=== PATIENT | female | born 1950 | race Caucasian/White ===

== ENCOUNTER 2018-04-07 10:32 | Emergency (ER) | payer OTHER ==
[~2018-04-07] VITALS: Ht 154.9 cm; Wt 83.9 kg
[~2018-04-07 10:32] MED LIST: ASCO500 PO; ASPI81CH PO; B-12 1,000 MCG1 EACH SL; CEPH500 PO; CIPR500 PO; COQ1050 MG PO; CRANBERRY CONC1 EACH PO; CYAN100 PO; CYAN500 SL; Cranberry300 MG PO; DICY20; DIPATR PO; FAMO40 PO; FENT50TP; HYDACE5 PO; HYDMOR4; INSLI100I; INSUASPI SUBQ; INSULANI SC; INVOKANA100 MG PO; INVOKANA300 MG PO; Kristalose20 GM PO; LISI20 PO; LISI5; LIVALO4 MG PO; METANX CAPSULE1 EACH PO; METF500; METO10; METO10 PO; Norco 5-325 Ta1 EACH PO; OMEP20ER; ONDA4 PO; ONDA4ODT MM; ONDA8; ONDA8 PO; ONDA8ODT; ONDA8ODT MM; OXYACE5T PO; PANT40; POTA20PAC PO; POTCHL20ER PO; PROC10 PO; PROC25S PR; PROM25; PROM25 PO; PROM25S; PROM25S PR; Pepcid40 MG PO; Percocet 5-3251 EACH PO; Protonix40 MG PO; Pseudoephedrine30 MG PO; RXHYDMOR2 PO; RXONDA4ODT MM; RXPROM25 PO; SOLIQUA 100 UNIT3 ML SC; TOCO400 PO; TRIM200S; VALS80; VITAMIN C; VITAMIN E; Zofran Odt4 MG SL; [UNRECOGNIZED DRUG - REMARK]; [UNRECOGNIZED DRUG - REMARK]; [UNRECOGNIZED DRUG - REMARK]
[2018-04-07] MEDS ORDERED: INSULANPEN SC (11:04)
[2018-04-07] MEDS ORDERED: GLIM2 PO (11:05)
[2018-04-07] MEDS ORDERED: ASPI81CH PO (11:05)
[2018-04-07 12:06] LABS: BASOPHILS ABSOLUTE AUTO 0.01 K/mm3 (0.00-0.23); BASOPHILS PERCENT AUTO 0 % (0-2); EOSINOPHILS PERCENT AUTO 0 % (0-6); Hemoglobin 16.2 g/dL (11.5-16.0); IMMATURE GRAN ABSOLUTE AUTO 0.04 K/mm3 (0.00-0.10); IMMATURE GRAN PERCENT AUTO 0 % (0-1); LYMPHOCYTES ABSOLUTE AUTO 0.81 K/mm3 (0.84-5.20); LYMPHOCYTES PERCENT AUTO 8 % (21-46); MONOCYTES ABSOLUTE AUTO 0.25 K/mm3 (0.16-1.47); MONOCYTES PERCENT AUTO 2 % (4-13); Mean Corpuscular HGB 32.7 pg (26.0-34.0); Mean Corpuscular HGB Conc 35.2 g/dL (31.5-36.5); Mean Corpuscular Volume 93 fL (80-100); Mean Platelet Volume 9.8 fL (9.1-12.4); NEUTROPHILS ABSOLUTE AUTO 9.51 K/mm3 (1.96-9.15); NEUTROPHILS PERCENT AUTO 90 % (41-73); Platelet Count 222 K/mm3 (150-400); RDW Coefficient Variation 11.9 % (11.7-14.2); RDW Standard Deviation 41.1 fL (35.1-46.3); Red Blood Cell Count 4.96 M/mm3 (3.80-5.20); White Blood Cell Count 10.62 K/mm3 (4.00-11.30)
[2018-04-07 12:20] LABS: Alanine Aminotransfer (ALT/SGP 79 U/L (12-78); Albumin, Blood 3.9 g/dL (3.4-5.0); Albumin/Globulin Ratio 0.9 (0.8-1.8); Alk Phos 97 U/L (50-136); Anion Gap 14 mmol/L (6-16); Aspartate Aminotrans (AST/SGOT 59 U/L (12-37); Blood Urea Nitrogen 15 mg/dL (8-24); Bun/Creatinine Ratio 22.1 (12.0-20.0); CO2, Blood 25 mmol/L (21-32); Calcium, Blood 9.2 mg/dL (8.5-10.1); Chloride, Blood 99 mmol/L (98-108); Creatinine, Blood 0.68 mg/dL (0.40-1.00); Globulin, Blood 4.4 g/dL (2.2-4.0); Glomerular Filtration Rate >60 (60-); Glucose, Blood 394 mg/dL (70-99); Potassium, Blood 3.9 mmol/L (3.5-5.5); Sodium, Blood 138 mmol/L (136-145); Total Protein, Blood 8.3 g/dL (6.4-8.2)
[2018-04-07] MEDS ORDERED: Colace100 MG PO (13:37)
[2018-04-07 13:54] LABS: Source, Urine Clean Catch
[2018-04-07 14:00] LABS: Bilirubin, Urine Neg (Neg); Blood, Urine Neg (Neg); Glucose Qualitative, Urine 4+ (Neg); Ketones, Urine 3+ (Neg); Leukocyte Esterase, Urine Neg (Neg); Nitrite, Urine Neg (Neg); Protein, Urine 1+ (Neg); Urobilinogen, Urine NORM (Normal); pH, Urine 6.5 (5.0-8.0)
[2018-04-07 14:57] LABS: Appearance, Urine Clear (Clear); Color, Urine Pale Yellow (P-Yellow)
== END 2018-04-07 15:26 | disposition home or self-care (01) ==
LOC: ER 10:32
PROVIDERS: Emergency Medicine
DX: K59.00 Constipation, unspecified (principal); E11.65 Type 2 diabetes mellitus with hyperglycemia; Z79.899 Other long term (current) drug therapy; Z79.82 Long term (current) use of aspirin; Z79.4 Long term (current) use of insulin
CPT/HCPCS: 36415; 74177; 80053; 83690; 85025; 93005; 93010; 96361; 96374; 99284; J3010; J7030; Q9967

== ENCOUNTER 2018-11-24 14:17 | Emergency (ER) | payer OTHER ==
[~2018-11-24] VITALS: Ht 154.9 cm; Wt 83.9 kg
[~2018-11-24 14:17] MED LIST changes: +Colace100 MG PO; +GLIM2 PO; +INSULANPEN SC
[2018-11-24 15:39] LABS: BASOPHILS ABSOLUTE AUTO 0.03 K/mm3 (0.00-0.23); BASOPHILS PERCENT AUTO 0 % (0-2); EOSINOPHILS ABSOLUTE AUTO 0.01 K/mm3 (0.00-0.68); EOSINOPHILS PERCENT AUTO 0 % (0-6); Hematocrit 48.1 % (33.0-51.0); IMMATURE GRAN ABSOLUTE AUTO 0.08 K/mm3 (0.00-0.10); IMMATURE GRAN PERCENT AUTO 1 % (0-1); LYMPHOCYTES ABSOLUTE AUTO 2.85 K/mm3 (0.84-5.20); LYMPHOCYTES PERCENT AUTO 19 % (21-46); MONOCYTES ABSOLUTE AUTO 0.99 K/mm3 (0.16-1.47); MONOCYTES PERCENT AUTO 7 % (4-13); Mean Corpuscular HGB 32.6 pg (26.0-34.0); Mean Corpuscular HGB Conc 35.3 g/dL (31.5-36.5); Mean Corpuscular Volume 92 fL (80-100); Mean Platelet Volume 9.2 fL (9.1-12.4); NEUTROPHILS ABSOLUTE AUTO 11.24 K/mm3 (1.96-9.15); NEUTROPHILS PERCENT AUTO 74 % (41-73); Platelet Count 238 K/mm3 (150-400); RDW Coefficient Variation 12.2 % (11.7-14.2); RDW Standard Deviation 41.4 fL (35.1-46.3); Red Blood Cell Count 5.21 M/mm3 (3.80-5.20)
[2018-11-24 16:07] LABS: Alanine Aminotransfer (ALT/SGP 46 U/L (12-78); Albumin, Blood 4.3 g/dL (3.4-5.0); Alk Phos 95 U/L (50-136); Anion Gap 9 mmol/L (6-16); Aspartate Aminotrans (AST/SGOT 28 U/L (12-37); Bilirubin, Total 1.2 mg/dL (0.1-1.0); Blood Urea Nitrogen 37 mg/dL (8-24); Bun/Creatinine Ratio 40.4 (12.0-20.0); CO2, Blood 29 mmol/L (21-32); Calcium, Blood 8.8 mg/dL (8.5-10.1); Chloride, Blood 99 mmol/L (98-108); Creatinine, Blood 0.92 mg/dL (0.40-1.00); Globulin, Blood 4.4 g/dL (2.2-4.0); Glomerular Filtration Rate >60 (60-); Glucose, Blood 242 mg/dL (70-99); Potassium, Blood 3.6 mmol/L (3.5-5.5); Sodium, Blood 137 mmol/L (136-145); Total Protein, Blood 8.7 g/dL (6.4-8.2)
[2018-11-24 16:32] LABS: Source, Urine Clean Catch
[2018-11-24 16:37] LABS: Blood, Urine 1+ (Neg); Glucose Qualitative, Urine 1+ (Neg); Ketones, Urine 2+ (Neg); Leukocyte Esterase, Urine 2+ (Neg); Nitrite, Urine Pos (Neg); Protein, Urine 4+ (Neg); Urobilinogen, Urine 2+ (Normal)
[2018-11-24 16:45] LABS: Appearance, Urine Hazy (Clear); Bilirubin, Urine 2+ (Neg); Color, Urine Yellow (P-Yellow)
[2018-11-24 16:46] LABS: Bacteria Many /hpf; Squamous Epithelial Cells Mod /hpf (Few)
[2018-11-24] MEDS ORDERED: Acetaminophen1 EAC2 PO (17:24)
[2018-11-24] MEDS ORDERED: Cipro500 MG PO (19:33)
[2018-11-24] MEDS ORDERED: Flagyl500 MG PO (19:33)
== END 2018-11-24 19:53 | disposition home or self-care (01) ==
LOC: ER 14:17
PROVIDERS: Physician Assistant
DX: K57.32 Diverticulitis of large intestine without perforation or abscess without bleeding (principal); N39.0 Urinary tract infection, site not specified; E86.0 Dehydration; E11.9 Type 2 diabetes mellitus without complications; Z79.899 Other long term (current) drug therapy; Z79.82 Long term (current) use of aspirin; Z79.4 Long term (current) use of insulin
CPT/HCPCS: 36415; 74177; 80053; 81001; 85025; 87086; 96365; 96375; 99284-25; C9113; J0696; J3010; J7030; Q9967

== ENCOUNTER 2019-02-16 12:07 | Day surgery (SDC) | payer OTHER ==
[~2019-02-16] VITALS: Ht 154.9 cm; Wt 85.0 kg
[~2019-02-16 12:07] MED LIST changes: +Acetaminophen1 EAC2 PO; +Cipro500 MG PO; +Flagyl500 MG PO; +LO-DOSE ASPIRIN81 MG; +LOSA25; +Novolog100 UNIT/2; +PROBIOTIC PLUS1 EACH; +TYLENOL PM EX-1 EAC1
--- NOTE | 2019-02-16 12:59 | NUR ---
02/16/19 1259 Tam Moyer 1ST IV ATTEMPT VEIN BLEW-CMT 2-3 ATTEMPT VEIN BLEW
== END 2019-02-16 14:19 | disposition home or self-care (01) ==
LOC: ORSCSDS 12:07
PROVIDERS: Surgery
PROC: 0DBN8ZX Excision of Sigmoid Colon, Via Natural or Artificial Opening Endoscopic, Diagnostic (ICD-10-PCS; principal; 2019-02-16 13:30)
DX: Z12.11 Encounter for screening for malignant neoplasm of colon (principal); D12.5 Benign neoplasm of sigmoid colon; I10 Essential (primary) hypertension; E78.5 Hyperlipidemia, unspecified; E11.9 Type 2 diabetes mellitus without complications; Z79.82 Long term (current) use of aspirin; Z79.4 Long term (current) use of insulin; Z79.899 Other long term (current) drug therapy
CPT/HCPCS: 82947; 88305; J2704; J7120

== ENCOUNTER 2019-05-15 17:20 | Emergency (ER) | payer OTHER ==
[~2019-05-15] VITALS: Ht 154.9 cm; Wt 90.7 kg
[2019-05-15 18:37] LABS: BASOPHILS ABSOLUTE AUTO 0.02 K/mm3 (0.00-0.23); BASOPHILS PERCENT AUTO 0 % (0-2); EOSINOPHILS ABSOLUTE AUTO 0.03 K/mm3 (0.00-0.68); EOSINOPHILS PERCENT AUTO 0 % (0-6); Hemoglobin 15.6 g/dL (11.5-16.0); IMMATURE GRAN ABSOLUTE AUTO 0.04 K/mm3 (0.00-0.10); IMMATURE GRAN PERCENT AUTO 1 % (0-1); LYMPHOCYTES ABSOLUTE AUTO 1.09 K/mm3 (0.84-5.20); LYMPHOCYTES PERCENT AUTO 14 % (21-46); MONOCYTES ABSOLUTE AUTO 0.19 K/mm3 (0.16-1.47); MONOCYTES PERCENT AUTO 2 % (4-13); Mean Corpuscular HGB 32.5 pg (26.0-34.0); Mean Corpuscular HGB Conc 34.7 g/dL (31.5-36.5); Mean Corpuscular Volume 94 fL (80-100); Mean Platelet Volume 9.9 fL (9.1-12.4); NEUTROPHILS ABSOLUTE AUTO 6.68 K/mm3 (1.96-9.15); NEUTROPHILS PERCENT AUTO 83 % (41-73); Platelet Count 155 K/mm3 (150-400); RDW Coefficient Variation 12.5 % (11.7-14.2); RDW Standard Deviation 43.2 fL (35.1-46.3); White Blood Cell Count 8.05 K/mm3 (4.00-11.30)
[2019-05-15 18:55] LABS: Alanine Aminotransfer (ALT/SGP 70 U/L (12-78); Albumin, Blood 4.1 g/dL (3.4-5.0); Albumin/Globulin Ratio 0.9 (0.8-1.8); Alk Phos 106 U/L (50-136); Anion Gap 8 mmol/L (6-16); Aspartate Aminotrans (AST/SGOT 60 U/L (12-37); Bilirubin, Total 0.9 mg/dL (0.1-1.0); Blood Urea Nitrogen 14 mg/dL (8-24); Bun/Creatinine Ratio 22.8 (12.0-20.0); CO2, Blood 26 mmol/L (21-32); Calcium, Blood 9.3 mg/dL (8.5-10.1); Chloride, Blood 104 mmol/L (98-108); Creatinine, Blood 0.61 mg/dL (0.40-1.00); Globulin, Blood 4.4 g/dL (2.2-4.0); Glomerular Filtration Rate >60 (60-); Glucose, Blood 249 mg/dL (70-99); Potassium, Blood 3.8 mmol/L (3.5-5.5); Sodium, Blood 138 mmol/L (136-145); Total Protein, Blood 8.5 g/dL (6.4-8.2)
[2019-05-15] MEDS ORDERED: ASPI81CH PO (20:47)
[2019-05-15] MEDS ORDERED: Amaryl1 MG PO (20:47)
[2019-05-15] MEDS ORDERED: INSULANPEN SC (20:48)
[2019-05-15 21:06] LABS: Source, Urine Clean Catch
[2019-05-15 21:08] LABS: Bilirubin, Urine Neg (Neg); Blood, Urine 4+ (Neg); Glucose Qualitative, Urine 4+ (Neg); Ketones, Urine 4+ (Neg); Leukocyte Esterase, Urine 1+ (Neg); Nitrite, Urine Neg (Neg); Protein, Urine 3+ (Neg); Specific Gravity, Urine 1.025 (1.003-1.022); Urobilinogen, Urine NORM (Normal)
[2019-05-15 21:17] LABS: Appearance, Urine Hazy (Clear); Color, Urine Yellow (P-Yellow)
[2019-05-15 21:20] LABS: Bacteria Many /hpf; Squamous Epithelial Cells Many /hpf (Few)
[2019-05-15 21:21] LABS: Mucus Light (0-Heavy)
[2019-05-15] MEDS ORDERED: Zofran8 MG PO (21:41)
[2019-06-09] MEDS ORDERED: Novolog100 UNIT/1 (14:07)
== END 2019-05-15 22:28 | disposition home or self-care (01) ==
LOC: ER 17:20
PROVIDERS: Emergency Medicine
DX: R10.9 Unspecified abdominal pain (principal); R11.10 Vomiting, unspecified; E11.9 Type 2 diabetes mellitus without complications; Z88.8 Allergy status to other drugs, medicaments and biological substances; Z79.82 Long term (current) use of aspirin; Z79.899 Other long term (current) drug therapy; Z79.4 Long term (current) use of insulin
CPT/HCPCS: 36415; 80053; 81001; 83690; 85025; 87077; 87086; 87186; 93005; 93010; 96361; 96374; 96375; 96376; 99284-25; A9270-GY; J0780; J1170; J2405; J7120

== ENCOUNTER 2019-05-21 19:11 | Emergency (ER) | payer OTHER ==
[~2019-05-21] VITALS: Ht 154.9 cm; Wt 83.9 kg
[~2019-05-21 19:11] MED LIST changes: +Amaryl1 MG PO; +Zofran8 MG PO
[2019-05-21 21:02] LABS: BASOPHILS ABSOLUTE AUTO 0.03 K/mm3 (0.00-0.23); BASOPHILS PERCENT AUTO 0 % (0-2); EOSINOPHILS ABSOLUTE AUTO 0.01 K/mm3 (0.00-0.68); EOSINOPHILS PERCENT AUTO 0 % (0-6); Hematocrit 44.7 % (33.0-51.0); Hemoglobin 15.5 g/dL (11.5-16.0); IMMATURE GRAN ABSOLUTE AUTO 0.05 K/mm3 (0.00-0.10); IMMATURE GRAN PERCENT AUTO 1 % (0-1); LYMPHOCYTES ABSOLUTE AUTO 0.72 K/mm3 (0.84-5.20); LYMPHOCYTES PERCENT AUTO 8 % (21-46); MONOCYTES ABSOLUTE AUTO 0.21 K/mm3 (0.16-1.47); MONOCYTES PERCENT AUTO 2 % (4-13); Mean Corpuscular HGB 32.4 pg (26.0-34.0); Mean Corpuscular HGB Conc 34.7 g/dL (31.5-36.5); Mean Corpuscular Volume 94 fL (80-100); Mean Platelet Volume 9.5 fL (9.1-12.4); NEUTROPHILS ABSOLUTE AUTO 7.98 K/mm3 (1.96-9.15); NEUTROPHILS PERCENT AUTO 89 % (41-73); Platelet Count 158 K/mm3 (150-400); RDW Coefficient Variation 12.4 % (11.7-14.2); RDW Standard Deviation 42.9 fL (35.1-46.3); Red Blood Cell Count 4.78 M/mm3 (3.80-5.20)
[2019-05-21 21:19] LABS: Alanine Aminotransfer (ALT/SGP 59 U/L (12-78); Albumin, Blood 4.2 g/dL (3.4-5.0); Alk Phos 98 U/L (50-136); Anion Gap 7 mmol/L (6-16); Aspartate Aminotrans (AST/SGOT 36 U/L (12-37); Blood Urea Nitrogen 9 mg/dL (8-24); Bun/Creatinine Ratio 15.8 (12.0-20.0); CO2, Blood 26 mmol/L (21-32); Calcium, Blood 9.3 mg/dL (8.5-10.1); Chloride, Blood 105 mmol/L (98-108); Creatinine, Blood 0.57 mg/dL (0.40-1.00); Globulin, Blood 4.1 g/dL (2.2-4.0); Glomerular Filtration Rate >60 (60-); Glucose, Blood 273 mg/dL (70-99); Potassium, Blood 3.5 mmol/L (3.5-5.5); Sodium, Blood 138 mmol/L (136-145); Total Protein, Blood 8.3 g/dL (6.4-8.2)
[2019-05-21 22:01] LABS: Source, Urine Clean Catch
[2019-05-21 22:05] LABS: Bilirubin, Urine Neg (Neg); Blood, Urine Neg (Neg); Glucose Qualitative, Urine 4+ (Neg); Ketones, Urine 3+ (Neg); Leukocyte Esterase, Urine Neg (Neg); Nitrite, Urine Neg (Neg); Protein, Urine 2+ (Neg); Urobilinogen, Urine NORM (Normal)
[2019-05-21 22:11] LABS: Appearance, Urine Clear (Clear); Color, Urine Yellow (P-Yellow)
[2019-05-21 22:12] LABS: Bacteria Not Seen /hpf; Red Blood Cells, Urine Not Seen /hpf (0-2); Squamous Epithelial Cells Few /hpf (Few); White Blood Cells, Urine Rare /hpf (0-5)
[2019-05-21] MEDS ORDERED: ONDA4ODT MM (23:18)
[2019-06-09] MEDS ORDERED: Novolog100 UNIT/1 (14:07)
== END 2019-05-21 23:58 | disposition home or self-care (01) ==
LOC: ER 19:11
PROVIDERS: Physician Assistant
DX: K52.9 Noninfective gastroenteritis and colitis, unspecified (principal); E11.9 Type 2 diabetes mellitus without complications; Z79.4 Long term (current) use of insulin; Z79.82 Long term (current) use of aspirin
CPT/HCPCS: 36415; 74177; 80053; 81001; 82947; 83690; 85025; 93005; 93010; 96374-59; 96375-59; 96376-59; 99284-25; A9270-GY; J0780; J1170; J2405; J7120; Q9967

== ENCOUNTER 2019-06-16 12:45 | Day surgery (SDC) | payer OTHER ==
[~2019-06-16] VITALS: Ht 154.9 cm; Wt 83.9 kg
[~2019-06-16 12:45] MED LIST changes: +Novolog100 UNIT/1
[2019-06-16] MEDS ORDERED: AZO CRANBERRY1 EAC1 (13:29)
[2019-06-16] MEDS ORDERED: LOSA25 (13:29)
[2019-06-16] MEDS ORDERED: Suphedrine30 MG (13:30)
[2019-06-16] MEDS ORDERED: VITAMIN B122500 MCG (13:30)
[2019-06-16] MEDS ORDERED: COQ1050 MG (13:30)
== END 2019-06-16 15:03 | disposition home or self-care (01) ==
LOC: ORSCSDS 12:45
PROVIDERS: Internal Medicine Gastroenterology
PROC: 0DB98ZX Excision of Duodenum, Via Natural or Artificial Opening Endoscopic, Diagnostic (ICD-10-PCS; principal; 2019-06-16 14:15)
PROC: 0DB68ZX Excision of Stomach, Via Natural or Artificial Opening Endoscopic, Diagnostic (ICD-10-PCS; principal; 2019-06-16 14:15)
DX: R11.2 Nausea with vomiting, unspecified (principal); K29.50 Unspecified chronic gastritis without bleeding; R10.9 Unspecified abdominal pain; K74.60 Unspecified cirrhosis of liver; R19.4 Change in bowel habit; E11.9 Type 2 diabetes mellitus without complications; E78.00 Pure hypercholesterolemia, unspecified; I10 Essential (primary) hypertension; E78.5 Hyperlipidemia, unspecified; Z79.82 Long term (current) use of aspirin; Z79.4 Long term (current) use of insulin; Z79.899 Other long term (current) drug therapy
CPT/HCPCS: 82947; 88305; 88342; J2704; J7120

== ENCOUNTER 2020-07-14 10:01 | Observation (INO) | payer OTHER ==
[~2020-07-14] VITALS: Ht 154.9 cm; Wt 86.5 kg
[~2020-07-14 10:01] MED LIST changes: +AZO CRANBERRY1 EAC1; -Amaryl1 MG PO; +COQ1050 MG; +Suphedrine30 MG; +VITAMIN B122500 MCG
[2020-07-14 11:57] LABS: BASOPHILS ABSOLUTE AUTO 0.02 K/mm3 (0.00-0.23); BASOPHILS PERCENT AUTO 0 % (0-2); EOSINOPHILS PERCENT AUTO 0 % (0-6); Hematocrit 46.1 % (33.0-51.0); Hemoglobin 15.8 g/dL (11.5-16.0); IMMATURE GRAN ABSOLUTE AUTO 0.04 K/mm3 (0.00-0.10); IMMATURE GRAN PERCENT AUTO 0 % (0-1); LYMPHOCYTES ABSOLUTE AUTO 1.18 K/mm3 (0.84-5.20); LYMPHOCYTES PERCENT AUTO 12 % (21-46); MONOCYTES ABSOLUTE AUTO 0.49 K/mm3 (0.16-1.47); MONOCYTES PERCENT AUTO 5 % (4-13); Mean Corpuscular HGB 32.9 pg (26.0-34.0); Mean Corpuscular HGB Conc 34.3 g/dL (31.5-36.5); Mean Corpuscular Volume 96 fL (80-100); Mean Platelet Volume 9.7 fL (9.1-12.4); NEUTROPHILS ABSOLUTE AUTO 7.93 K/mm3 (1.96-9.15); NEUTROPHILS PERCENT AUTO 82 % (41-73); Platelet Count 172 K/mm3 (150-400); RDW Coefficient Variation 12.1 % (11.7-14.2); RDW Standard Deviation 43.1 fL (35.1-46.3); White Blood Cell Count 9.66 K/mm3 (4.00-11.30)
[2020-07-14 12:21] LABS: Alanine Aminotransfer (ALT/SGP 46 U/L (12-78); Albumin, Blood 3.8 g/dL (3.4-5.0); Albumin/Globulin Ratio 0.8 (0.8-1.8); Alk Phos 77 U/L (50-136); Anion Gap 9 mmol/L (6-16); Aspartate Aminotrans (AST/SGOT 31 U/L (12-37); Bilirubin, Total 1.1 mg/dL (0.1-1.0); Blood Urea Nitrogen 18 mg/dL (8-24); Bun/Creatinine Ratio 31.7 (12.0-20.0); CO2, Blood 25 mmol/L (21-32); Calcium, Blood 8.6 mg/dL (8.5-10.1); Chloride, Blood 104 mmol/L (98-108); Creatinine, Blood 0.57 mg/dL (0.40-1.00); Globulin, Blood 4.5 g/dL (2.2-4.0); Glomerular Filtration Rate >60 (60-); Glucose, Blood 247 mg/dL (70-99); Magnesium, Blood 2.2 mg/dL (1.6-2.4); Potassium, Blood 3.9 mmol/L (3.5-5.5); Sodium, Blood 138 mmol/L (136-145); Total Protein, Blood 8.3 g/dL (6.4-8.2); Troponin I 0.066 ng/mL (0.000-0.040)
[2020-07-14] MEDS ORDERED: HYDROCODONE-AC1 EAC8 PO (13:15)
[2020-07-14] MEDS ORDERED: GLIM4 PO (13:16)
[2020-07-14] MEDS ORDERED: BASAGLAR K100 UNIT/1 SC (13:17)
[2020-07-14] MEDS ORDERED: VITAMIN D325 MC3 PO (13:17)
[2020-07-14] MEDS ORDERED: Aspir 8181 MG PO (14:56)
--- NOTE | 2020-07-14 17:55 | NUR ---
SHIFT SUMMARY ED ADMIT THIS AFTERNOON. PATIENT DENIES PAIN, NAUSEA, AND SHORTNESS OF BREATH. PATIENT UP INDEPENDENT IN ROOM. PATIENT REPORTS FEELING MILDLY CONSTIPATED. TRENDING TROPONINS. CALL LIGHT IN REACH.
--- NOTE | 2020-07-15 04:12 | NUR ---
SHIFT SUMMARY ASSUMED CARE OF PT AT 1900. PT IS A/OX4, DENIES N/T IN EXTREMITES. HEART SOUNDS REGULAR, TELE SHOWS SINUS @ 62, DENIES CP. LUNG SOUNDS CLEAR, DENIES SOB. PT C/O CONSTIPATION, DR SHAH CONTACTED AND BOWEL CARE ORDERED. PT IS INDEPENDENT IN ROOM, PT WONDERED AROUND THE HALLWAYS LOOKING AT PAINTINGS BEFORE BED. NO AUCTE EVENTS DURING THE NIGHT. PT SLEPT T/O THE NIGHT. CALL LIGHT IN REACH, BED IN LOWEST POSTION, WILL CONTINUE TO MONITOR.
[2020-07-15 06:06] LABS: Anion Gap 8 mmol/L (6-16); Blood Urea Nitrogen 18 mg/dL (8-24); Bun/Creatinine Ratio 22.1 (12.0-20.0); CO2, Blood 25 mmol/L (21-32); Chloride, Blood 110 mmol/L (98-108); Creatinine, Blood 0.82 mg/dL (0.40-1.00); Glomerular Filtration Rate >60 (60-); Glucose, Blood 111 mg/dL (70-99); Potassium, Blood 3.2 mmol/L (3.5-5.5); Sodium, Blood 143 mmol/L (136-145); Troponin I 0.019 ng/mL (0.000-0.040)
[2020-07-15] MEDS ORDERED: METO5A PO (11:13)
--- NOTE | 2020-07-15 15:22 | NUR ---
DISCHARGE DISCHARGE MEDICATIONS AND INSTRUCTIONS EXPLAINED TO PATIENT. PATIENT STATED UNDERSTANDING. FOLLOW UP WITH PCP SCHEDULED. IV REMOVED WITHOUT DIFFICULTY. BELONGINGS WITH PATIENT. PATIENT TRANSFERED TO PRIVATE VEHICLE VIA WHEELCHAIR.
== END 2020-07-15 15:10 | disposition home or self-care (01) ==
LOC: ER 10:01 → ERHOLD 10:02 → MEDS 16:00 → ENPENDDIS 07-15 10:32 → MEDS 07-15 15:10
PROVIDERS: Emergency Medicine; Nurse Practitioner Acute Care; ADMIT Internal Medicine
DX: R10.13 Epigastric pain (principal); R79.89 Other specified abnormal findings of blood chemistry; E11.43 Type 2 diabetes mellitus with diabetic autonomic (poly)neuropathy; K31.84 Gastroparesis; I10 Essential (primary) hypertension; E78.5 Hyperlipidemia, unspecified; E66.01 Morbid (severe) obesity due to excess calories; Z79.82 Long term (current) use of aspirin; Z79.899 Other long term (current) drug therapy; Z79.4 Long term (current) use of insulin; Z88.8 Allergy status to other drugs, medicaments and biological substances; Z68.35 Body mass index [BMI] 35.0-35.9, adult
CPT/HCPCS: 36415; 80048; 80053; 82947; 83605; 83690; 83735; 84484; 85025; 93005; 93010; 93306; 96361; 96374; 96375; 99285-25; A9270-GY; G0378; J1170; J2405; J7030

== ENCOUNTER → 2020-08-30 | Outpatient (CLI) | payer OTHER ==
[~2020-08-30] MED LIST changes: +Aspir 8181 MG PO; +BASAGLAR K100 UNIT/1 SC; +GLIM4 PO; +HYDROCODONE-AC1 EAC8 PO; +METO5A PO; +VITAMIN D325 MC3 PO
== END ==
LOC: LAB SHORT 09:45 → PLD 09:45
DX: E11.9 Type 2 diabetes mellitus without complications (principal)
CPT/HCPCS: 82043

== ENCOUNTER → 2020-09-05 | Outpatient (CLI) | payer OTHER ==
[2020-09-05 11:20] LABS: Protein, Urine Quantitative 8.5 mg/dL (0.0-11.9)
== END | disposition home or self-care (01) ==
LOC: LAB SHORT 09:21 → LAB 09:21
PROVIDERS: Family Medicine
DX: E11.9 Type 2 diabetes mellitus without complications (principal)
CPT/HCPCS: 81050; 84156

== ENCOUNTER 2020-11-19 14:40 | Emergency (ER) | payer OTHER ==
[~2020-11-19] VITALS: Ht 154.9 cm; Wt 83.9 kg
[2020-11-19 15:39] LABS: BASOPHILS ABSOLUTE AUTO 0.02 K/mm3 (0.00-0.23); BASOPHILS PERCENT AUTO 0 % (0-2); EOSINOPHILS PERCENT AUTO 0 % (0-6); Hematocrit 45.4 % (33.0-51.0); Hemoglobin 15.6 g/dL (11.5-16.0); IMMATURE GRAN ABSOLUTE AUTO 0.03 K/mm3 (0.00-0.10); IMMATURE GRAN PERCENT AUTO 0 % (0-1); LYMPHOCYTES ABSOLUTE AUTO 1.03 K/mm3 (0.84-5.20); LYMPHOCYTES PERCENT AUTO 9 % (21-46); MONOCYTES ABSOLUTE AUTO 0.77 K/mm3 (0.16-1.47); MONOCYTES PERCENT AUTO 7 % (4-13); Mean Corpuscular HGB 32.6 pg (26.0-34.0); Mean Corpuscular HGB Conc 34.4 g/dL (31.5-36.5); Mean Corpuscular Volume 95 fL (80-100); Mean Platelet Volume 9.8 fL (9.1-12.4); NEUTROPHILS ABSOLUTE AUTO 9.76 K/mm3 (1.96-9.15); NEUTROPHILS PERCENT AUTO 84 % (41-73); Platelet Count 191 K/mm3 (150-400); RDW Coefficient Variation 12.5 % (11.7-14.2); RDW Standard Deviation 44.1 fL (35.1-46.3); Red Blood Cell Count 4.78 M/mm3 (3.80-5.20); White Blood Cell Count 11.61 K/mm3 (4.00-11.30)
[2020-11-19 16:03] LABS: Alanine Aminotransfer (ALT/SGP 58 U/L (12-78); Albumin, Blood 3.9 g/dL (3.4-5.0); Albumin/Globulin Ratio 0.8 (0.8-1.8); Alk Phos 88 U/L (50-136); Anion Gap 9 mmol/L (6-16); Aspartate Aminotrans (AST/SGOT 40 U/L (12-37); Bilirubin, Total 1.6 mg/dL (0.1-1.0); Blood Urea Nitrogen 22 mg/dL (8-24); Bun/Creatinine Ratio 24.8 (12.0-20.0); CO2, Blood 28 mmol/L (21-32); Calcium, Blood 9.3 mg/dL (8.5-10.1); Chloride, Blood 101 mmol/L (98-108); Creatinine, Blood 0.89 mg/dL (0.40-1.00); Globulin, Blood 4.8 g/dL (2.2-4.0); Glomerular Filtration Rate >60 (60-); Glucose, Blood 355 mg/dL (70-99); Potassium, Blood 4.2 mmol/L (3.5-5.5); Sodium, Blood 138 mmol/L (136-145); Total Protein, Blood 8.7 g/dL (6.4-8.2)
[2020-11-19 17:11] LABS: Source, Urine Clean Catch
[2020-11-19 17:14] LABS: Appearance, Urine Cloudy (Clear); Blood, Urine 3+ (Neg); Color, Urine Amber (P-Yellow); Glucose Qualitative, Urine 4+ (Neg); Ketones, Urine 3+ (Neg); Leukocyte Esterase, Urine 1+ (Neg); Nitrite, Urine Neg (Neg); Protein, Urine 4+ (Neg); Urobilinogen, Urine 1+ (Normal)
[2020-11-19 17:21] LABS: Bilirubin, Urine 1+ (Neg)
[2020-11-19 17:24] LABS: Bacteria Many /hpf; Mucus Light (0-Heavy); Squamous Epithelial Cells Many /hpf (Few)
[2020-11-30] MEDS ORDERED: Amaryl2 MG PO (13:18)
[2020-11-30] MEDS ORDERED: NOVOLOG100 UNIT/3 (13:19)
[2020-11-30] MEDS ORDERED: Aspirin EC81 MG PO (13:20)
[2020-11-30] MEDS ORDERED: COQ-10100 MG PO (13:20)
[2020-11-30] MEDS ORDERED: VITAMIN B125000 MC1 PO (13:20)
[2020-11-30] MEDS ORDERED: CRANBERRY CONC1 EAC1 PO (13:20)
[2020-11-30] MEDS ORDERED: PSEUDOEPHEDRINE30 M1 PO (13:21)
[2020-11-30] MEDS ORDERED: CLARITIN-D 121 EAC1 PO (13:21)
[2020-11-30] MEDS ORDERED: Alph-E-Mixed400 UNIT PO (13:21)
[2020-11-30] MEDS ORDERED: CALCIUM CARBON500 M1 PO (13:22)
[2020-11-30] MEDS ORDERED: VITAMIN D325 GM PO (13:22)
[2020-11-30] MEDS ORDERED: PROBIOTIC1 EA13 PO (13:22)
[2021-02-26] MEDS ORDERED: POTA20PAC PO (14:10)
[2021-02-26] MEDS ORDERED: DICY20 PO (14:10)
[2021-02-27] MEDS ORDERED: Macrobid 100 M100 MG PO (20:27)
== END 2020-11-19 18:00 | disposition home or self-care (01) ==
LOC: ER 14:40
PROVIDERS: Physician Assistant
DX: E86.0 Dehydration (principal); R11.2 Nausea with vomiting, unspecified; R10.84 Generalized abdominal pain; E11.9 Type 2 diabetes mellitus without complications; Z79.4 Long term (current) use of insulin; Z79.899 Other long term (current) drug therapy
CPT/HCPCS: 36415; 80053; 81001; 83690; 85025; 87086; 93005; 93010; 96361; 96374; 96375; 99284-25; J2270; J2550; J7030

== ENCOUNTER 2020-11-20 22:24 | Emergency (ER) | payer OTHER ==
[~2020-11-20] VITALS: Ht 154.9 cm; Wt 83.9 kg
[2020-11-20 23:05] LABS: BASOPHILS ABSOLUTE AUTO 0.03 K/mm3 (0.00-0.23); BASOPHILS PERCENT AUTO 0 % (0-2); EOSINOPHILS ABSOLUTE AUTO 0.08 K/mm3 (0.00-0.68); EOSINOPHILS PERCENT AUTO 1 % (0-6); Hematocrit 45.3 % (33.0-51.0); Hemoglobin 15.4 g/dL (11.5-16.0); IMMATURE GRAN ABSOLUTE AUTO 0.02 K/mm3 (0.00-0.10); IMMATURE GRAN PERCENT AUTO 0 % (0-1); LYMPHOCYTES PERCENT AUTO 25 % (21-46); MONOCYTES ABSOLUTE AUTO 0.49 K/mm3 (0.16-1.47); MONOCYTES PERCENT AUTO 6 % (4-13); Mean Corpuscular HGB 32.6 pg (26.0-34.0); Mean Corpuscular Volume 96 fL (80-100); NEUTROPHILS ABSOLUTE AUTO 5.46 K/mm3 (1.96-9.15); NEUTROPHILS PERCENT AUTO 68 % (41-73); Platelet Count 142 K/mm3 (150-400); RDW Coefficient Variation 12.3 % (11.7-14.2); RDW Standard Deviation 43.8 fL (35.1-46.3); Red Blood Cell Count 4.73 M/mm3 (3.80-5.20); White Blood Cell Count 8.08 K/mm3 (4.00-11.30)
[2020-11-20 23:26] LABS: Alanine Aminotransfer (ALT/SGP 70 U/L (12-78); Albumin, Blood 3.5 g/dL (3.4-5.0); Albumin/Globulin Ratio 0.7 (0.8-1.8); Alk Phos 84 U/L (50-136); Anion Gap 7 mmol/L (6-16); Aspartate Aminotrans (AST/SGOT 107 U/L (12-37); Bilirubin, Total 0.8 mg/dL (0.1-1.0); Blood Urea Nitrogen 24 mg/dL (8-24); Bun/Creatinine Ratio 31.7 (12.0-20.0); CO2, Blood 25 mmol/L (21-32); Calcium, Blood 8.4 mg/dL (8.5-10.1); Chloride, Blood 105 mmol/L (98-108); Creatinine, Blood 0.76 mg/dL (0.40-1.00); Globulin, Blood 4.7 g/dL (2.2-4.0); Glomerular Filtration Rate >60 (60-); Glucose, Blood 281 mg/dL (70-99); Potassium, Blood 5.5 mmol/L (3.5-5.5); Sodium, Blood 137 mmol/L (136-145); Total Protein, Blood 8.2 g/dL (6.4-8.2)
[2020-11-30] MEDS ORDERED: Amaryl2 MG PO (13:18)
[2020-11-30] MEDS ORDERED: NOVOLOG100 UNIT/3 (13:19)
[2020-11-30] MEDS ORDERED: COQ-10100 MG PO (13:20)
[2020-11-30] MEDS ORDERED: VITAMIN B125000 MC1 PO (13:20)
[2020-11-30] MEDS ORDERED: CRANBERRY CONC1 EAC1 PO (13:20)
[2020-11-30] MEDS ORDERED: Aspirin EC81 MG PO (13:20)
[2020-11-30] MEDS ORDERED: PSEUDOEPHEDRINE30 M1 PO (13:21)
[2020-11-30] MEDS ORDERED: CLARITIN-D 121 EAC1 PO (13:21)
[2020-11-30] MEDS ORDERED: Alph-E-Mixed400 UNIT PO (13:21)
[2020-11-30] MEDS ORDERED: PROBIOTIC1 EA13 PO (13:22)
[2020-11-30] MEDS ORDERED: CALCIUM CARBON500 M1 PO (13:22)
[2020-11-30] MEDS ORDERED: VITAMIN D325 GM PO (13:22)
[2021-02-26] MEDS ORDERED: DICY20 PO (14:10)
[2021-02-26] MEDS ORDERED: POTA20PAC PO (14:10)
[2021-02-27] MEDS ORDERED: Macrobid 100 M100 MG PO (20:27)
== END 2020-11-21 01:52 | disposition home or self-care (01) ==
LOC: ER 22:24
PROVIDERS: Student in an Organized Health Care Education/Training Program
DX: R10.84 Generalized abdominal pain (principal); I10 Essential (primary) hypertension; E11.43 Type 2 diabetes mellitus with diabetic autonomic (poly)neuropathy; K31.84 Gastroparesis; E66.9 Obesity, unspecified; Z79.4 Long term (current) use of insulin; Z88.8 Allergy status to other drugs, medicaments and biological substances; Z79.899 Other long term (current) drug therapy
CPT/HCPCS: 36415; 80053; 83690; 85025; 96374; 96375; 99284-25; J1630; J1885; J2405; J2765

== ENCOUNTER 2020-12-08 11:51 | Day surgery (SDC) | payer OTHER ==
[~2020-12-08] VITALS: Ht 154.9 cm; Wt 80.5 kg
[~2020-12-08 11:51] MED LIST changes: +Alph-E-Mixed400 UNIT PO; +Amaryl2 MG PO; +Aspirin EC81 MG PO; +CALCIUM CARBON500 M1 PO; +CLARITIN-D 121 EAC1 PO; +COQ-10100 MG PO; +CRANBERRY CONC1 EAC1 PO; +NOVOLOG100 UNIT/3; +PROBIOTIC1 EA13 PO; +PSEUDOEPHEDRINE30 M1 PO; +VITAMIN B125000 MC1 PO; +VITAMIN D325 GM PO
--- NOTE | 2020-12-08 12:35 | NUR ---
12/08/20 1235 Larissa Londono 1 try right hand valve 2 try right wrist blew
[2021-02-26] MEDS ORDERED: POTA20PAC PO (14:10)
[2021-02-26] MEDS ORDERED: DICY20 PO (14:10)
[2021-02-27] MEDS ORDERED: Macrobid 100 M100 MG PO (20:27)
== END 2020-12-08 14:06 | disposition home or self-care (01) ==
LOC: ORSCSDS 11:51
PROVIDERS: Internal Medicine Gastroenterology
PROC: 0DB68ZX Excision of Stomach, Via Natural or Artificial Opening Endoscopic, Diagnostic (ICD-10-PCS; principal; 2020-12-08 13:15)
DX: R10.9 Unspecified abdominal pain (principal); K74.60 Unspecified cirrhosis of liver; I85.00 Esophageal varices without bleeding; K29.70 Gastritis, unspecified, without bleeding; E78.5 Hyperlipidemia, unspecified; I10 Essential (primary) hypertension; E11.9 Type 2 diabetes mellitus without complications; Z79.4 Long term (current) use of insulin; K76.6 Portal hypertension; K31.89 Other diseases of stomach and duodenum; Z79.82 Long term (current) use of aspirin; Z79.899 Other long term (current) drug therapy
CPT/HCPCS: 82947; 88305; 88342; J2250; J2704; J7120

== ENCOUNTER → 2021-01-03 | Outpatient (CLI) | payer OTHER ==
[~2021-01-03] MED LIST changes: +BASAGLAR K100 UNIT/3 SC; +CARV3.125 PO; +CREON DR 3,0001 EACH PO; +DICY20 PO; +Keflex500 MG PO; +LACTASE FAS9000 UNI1 PO; +Macrobid 100 M100 MG PO; +OMEP20ER PO; +PHENERGAN25 MG PR; +SPIR25 PO
== END | disposition home or self-care (01) ==
LOC: LAB 16:00 → LAB SHORT 16:00
DX: R10.84 Generalized abdominal pain (principal); R82.998 Other abnormal findings in urine
CPT/HCPCS: 87086

== ENCOUNTER 2021-01-04 09:43 | Observation (INO) | payer OTHER ==
[~2021-01-04] VITALS: Ht 154.9 cm; Wt 76.4 kg
[~2021-01-04 09:43] MED LIST changes: -BASAGLAR K100 UNIT/3 SC; -CARV3.125 PO; -CREON DR 3,0001 EACH PO; -DICY20 PO; -Keflex500 MG PO; -LACTASE FAS9000 UNI1 PO; -Macrobid 100 M100 MG PO; -OMEP20ER PO; -PHENERGAN25 MG PR; -SPIR25 PO
[2021-01-04 10:49] LABS: BASOPHILS ABSOLUTE AUTO 0.03 K/mm3 (0.00-0.23); BASOPHILS PERCENT AUTO 0 % (0-2); EOSINOPHILS ABSOLUTE AUTO 0.01 K/mm3 (0.00-0.68); EOSINOPHILS PERCENT AUTO 0 % (0-6); Hematocrit 45.9 % (33.0-51.0); Hemoglobin 16.6 g/dL (11.5-16.0); IMMATURE GRAN ABSOLUTE AUTO 0.02 K/mm3 (0.00-0.10); IMMATURE GRAN PERCENT AUTO 0 % (0-1); LYMPHOCYTES ABSOLUTE AUTO 0.68 K/mm3 (0.84-5.20); LYMPHOCYTES PERCENT AUTO 7 % (21-46); MONOCYTES ABSOLUTE AUTO 0.34 K/mm3 (0.16-1.47); MONOCYTES PERCENT AUTO 3 % (4-13); Mean Corpuscular HGB 32.9 pg (26.0-34.0); Mean Corpuscular HGB Conc 36.2 g/dL (31.5-36.5); Mean Corpuscular Volume 91 fL (80-100); Mean Platelet Volume 9.8 fL (9.1-12.4); NEUTROPHILS ABSOLUTE AUTO 8.94 K/mm3 (1.96-9.15); NEUTROPHILS PERCENT AUTO 89 % (41-73); Platelet Count 168 K/mm3 (150-400); RDW Coefficient Variation 14.3 % (11.7-14.2); RDW Standard Deviation 46.8 fL (35.1-46.3); Red Blood Cell Count 5.05 M/mm3 (3.80-5.20); White Blood Cell Count 10.02 K/mm3 (4.00-11.30)
[2021-01-04 11:06] LABS: Bilirubin, Total 1.5 mg/dL (0.1-1.0); Bun/Creatinine Ratio 7.5 (12.0-20.0); Calcium, Blood 9.8 mg/dL (8.5-10.1); Creatinine, Blood 1.61 mg/dL (0.40-1.00); Potassium, Blood 2.4 mmol/L (3.5-5.5)
[2021-01-04 12:39] LABS: Source, Urine Clean Catch
[2021-01-04 12:43] LABS: Appearance, Urine Clear (Clear); Bilirubin, Urine Neg (Neg); Blood, Urine 1+ (Neg); Color, Urine Yellow (P-Yellow); Glucose Qualitative, Urine Neg (Neg); Ketones, Urine 4+ (Neg); Leukocyte Esterase, Urine Neg (Neg); Nitrite, Urine Neg (Neg); Protein, Urine Neg (Neg); Specific Gravity, Urine 1.015 (1.003-1.022); Urobilinogen, Urine NORM (Normal)
[2021-01-04 13:04] LABS: Bacteria Rare /hpf; Red Blood Cells, Urine 0-2 /hpf (0-2); Squamous Epithelial Cells Rare /hpf (Few); White Blood Cells, Urine 0-2 /hpf (0-5)
--- NOTE | 2021-01-04 17:17 | NUR ---
NOTIFIED OF PATIENT-ABD PAIN FOR MONTHS AND CAME IN WITH N/V. BP 180/62. PAIN WHEN MOVING. NO PAIN AT THIS TIME. NOT NORMALLY ON ANY HTN MEDS. MD TO CHECK CHART.
--- NOTE | 2021-01-04 17:50 | NUR ---
ALERT. ORIENTED. STANDBY ASSIST. ARRIVES FROM E.R. ABOUT 1645. POTASSIUM INFUSING SLOWLY CONCURRENTLY W/NACL. DENIES ANY PAIN TO IV SITE. TELE ON AND PER TECH SR. STS HAS PAIN TO ABD AFTER EATTING. CONSULT GI AND MD SPOKE WITH HEAD WELL PULLER MD. UNLABORED RESPIRATIONS. NO N/V WHILE ON MED FLOOR. TM
--- NOTE | 2021-01-04 18:05 | NUR ---
LEFT MESSAGE ON VOICE MAIL FOR PARAMETERS FOR APRESOLINE.
--- NOTE | 2021-01-04 18:21 | NUR ---
DISCUSSED W/ADAIR. PARAMETERS FOR APRESOLINE, CAN PUT GIVE IF SYSTOLIC >160. ALSO NOTIFIED OF TROP WAS 0.063 NOW 0.070 W/ANOTHER DRAW AT 2230. NO C.P. AND HAS NOT HAD N/V WHILE ON MED FLOOR. WATCH AND IF HIGHER NEXT ONE NOTIFY ADAIR.
--- NOTE | 2021-01-04 20:01 | NUR ---
NAUSEA AND PAIN PT FEELING NAUSEAOUS AND HAS STATES HAS 10/10 ABD PAIN. PT HAS HX OF CHRONIC OF ABD PAIN. HOPITALIST ADAIR NOTIFIED WHO SUGGESTED HEATING PAD AND ANTI-NAUSEA MEDICATION AT THIS TIME. IV REGLAN GIVEN AND HEATING PAD APPLIED. [facility].
[2021-01-04 21:27] LABS: Bun/Creatinine Ratio 7.2 (12.0-20.0); Calcium, Blood 8.8 mg/dL (8.5-10.1); Creatinine, Blood 1.52 mg/dL (0.40-1.00); Potassium, Blood 2.7 mmol/L (3.5-5.5)
--- NOTE | 2021-01-05 04:48 | NUR ---
SHOE SHANKER SUMMARY PT A//O X4. PT COMPLAINED OF 10/10 ABD. PAIN. HOSPITALIST NOTIFIED WHO SUGGESTED TO CONTINUE REGLAN AND A HEATING PAD TO ABD FOR PAIN. PT DID FEEL NAUSEATED WHICH EXACERBATED THE PAIN. REGLAN GIVEN, HEADING PAD IN PLACE OVER NIGHT. PT DENIES CHEST PAIN, SOB. TELE SR IN THE 60'S TO 70'S. CALL LIGHT WITHIN REACH. [facility].
[2021-01-05 06:19] LABS: Albumin, Blood 3.3 g/dL (3.4-5.0); Bilirubin, Total 1.2 mg/dL (0.1-1.0); Bun/Creatinine Ratio 7.1 (12.0-20.0); Calcium, Blood 8.7 mg/dL (8.5-10.1); Creatinine, Blood 1.55 mg/dL (0.40-1.00); Globulin, Blood 3.4 g/dL (2.2-4.0); Potassium, Blood 2.9 mmol/L (3.5-5.5); Total Protein, Blood 6.7 g/dL (6.4-8.2)
[2021-01-05 06:33] LABS: BASOPHILS ABSOLUTE AUTO 0.02 K/mm3 (0.00-0.23); BASOPHILS PERCENT AUTO 0 % (0-2); EOSINOPHILS ABSOLUTE AUTO 0.07 K/mm3 (0.00-0.68); EOSINOPHILS PERCENT AUTO 1 % (0-6); Hematocrit 36.4 % (33.0-51.0); IMMATURE GRAN ABSOLUTE AUTO 0.02 K/mm3 (0.00-0.10); IMMATURE GRAN PERCENT AUTO 0 % (0-1); LYMPHOCYTES ABSOLUTE AUTO 1.73 K/mm3 (0.84-5.20); LYMPHOCYTES PERCENT AUTO 21 % (21-46); MONOCYTES PERCENT AUTO 9 % (4-13); Mean Corpuscular HGB 32.9 pg (26.0-34.0); Mean Corpuscular HGB Conc 35.7 g/dL (31.5-36.5); Mean Corpuscular Volume 92 fL (80-100); Mean Platelet Volume 9.8 fL (9.1-12.4); NEUTROPHILS ABSOLUTE AUTO 5.72 K/mm3 (1.96-9.15); NEUTROPHILS PERCENT AUTO 69 % (41-73); Platelet Count 146 K/mm3 (150-400); RDW Coefficient Variation 14.9 % (11.7-14.2); Red Blood Cell Count 3.95 M/mm3 (3.80-5.20); White Blood Cell Count 8.26 K/mm3 (4.00-11.30)
--- NOTE | 2021-01-05 07:05 | NUR ---
notified trop trending up .[phone]-.070 and late last nite .086. to check chart.
--- NOTE | 2021-01-05 07:15 | NUR ---
AWARE OF K AT 2.9. OK TO USE AM LAB DRAW FOR STST TROP. PATIENT DENIES C.P/DISCOMFORT AND STS IS FEELING BETTER THAN WHEN SHE CAME IN.
--- NOTE | 2021-01-05 09:11 | NUR ---
AWARE HEART RATE 49.
--- NOTE | 2021-01-05 11:41 | NUR ---
PATIENT ATE SM AMOUNT BREAKFAST SO CAN HAVE H2O TILL 10 AM THEN NPO TILL 2PM FOR FIRST PART STRESS TEST. PATIENT AWARE OF ALL.
--- NOTE | 2021-01-05 13:02 | NUR ---
Patient is sitting up in bed and alert. Patient tells me about her symptoms and the desire to get some answers so she can begin eating and drinking again. Patient then talks at length about her spiritual journey beginning when she was a young girl up to the present. 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 Patient says that she is nervous about stress test and is concerned about what the test may reveal. I listen empathically and provide pastoral curriculum counselor and prayer. Patient responds well and shows signs of reduced stress. I will continue to remain available to patient and family.
--- NOTE | 2021-01-05 17:44 | NUR ---
Feli was appreciative of prayer and emotional support. She is hopeful for some answers about her recurrent medical condition. She denied fears and pain and expressed gratitude for spiritual encouragement.
--- NOTE | 2021-01-05 18:29 | NUR ---
ALERT. ORIENTED. COOPERATIVE. HAS DENIED ANY PAIN TODAY. EATTING SM. AMOUNTS OF FLUIDS ALL MEALS WITHOUT N/V. HAD FIRST PART STRESS TEST TODAY AND TOLERATED WELL. PATIENT AWARE NO CAFFEINE AFTER 10PM, NPO AFTER 6AM TOMORROW FOR SECOND PART STRESS TEST AT 1030AM. TELE ON AND PER TECH AT THIS TIME SB AT 54. HAS BEEN SR 60-70'S. TROP TRENDING DOWN. RECEIVED 2 MINI BAGS POTASSIUM TODAY AND TOLERATED WELL. GI CONSULT WAS IN TO SEE . NO ACUTE CHANGES. WCTM
--- NOTE | 2021-01-06 04:06 | NUR ---
DAIRY MANAGER SUMMARY PT A/O X4. PLEASANT AND COOPERATIVE. INDPENEDENT IN ROOM. PT DENIES PAIN, NAUSEA AND SOB OVERNIGHT. SLEPT WELL. NO COMPLAINTS. NO CAFFINE CONSUMED PT HAS STRESS TEST THIS AM. HYDRALAZINE GIVEN FOR HTN WITH GOOD RESULTS. NO ACUTE CHANGES. CALL LIGHT WITHIN REACH.
[2021-01-06 06:10] LABS: Albumin, Blood 3.1 g/dL (3.4-5.0); Anion Gap 11 mmol/L (6-16); Blood Urea Nitrogen 7 mg/dL (8-24); Bun/Creatinine Ratio 5.3 (12.0-20.0); CO2, Blood 24 mmol/L (21-32); Calcium, Blood 8.2 mg/dL (8.5-10.1); Chloride, Blood 111 mmol/L (98-108); Creatinine, Blood 1.32 mg/dL (0.40-1.00); Glomerular Filtration Rate 42 (60-); Glucose, Blood 107 mg/dL (70-99); Phosphorus, Blood 2.6 mg/dL (2.5-4.9); Potassium, Blood 2.5 mmol/L (3.5-5.5); Sodium, Blood 146 mmol/L (136-145)
--- NOTE | 2021-01-06 16:02 | NUR ---
PATIENT IS VERY PLEASANT AND COOPERATIVE WITH STAFF. ALERT AND ORIENTED; INDEPENDANT. HAD A LOT OF NAUSEA THIS MORNING BUT IT HAS SEEMED TO IMPROVE A BIT THE DAY MOVED ON. PATIENT CONTINUES TO HAVE ELEVATED BLOOD PRESSURE WHICH RESPONDS TO ANTI-HYPERTENSIVES. OTHER VITALS STABLE. HYPOKALEMIC AND RECIEVED 2 K-RIDERS THIS MORNING; POTASSIUM INCREASED TO 3.0. PATIENT IS ASLEEP RESTING IN BED AT THIS TIME. CALL LIGHT IN REACH.
--- NOTE | 2021-01-07 05:50 | NUR ---
SHIFT SUMMARY PT IS 70 Y/O FEMALE, ADMITTED FOR LAURITA AND ELEVATED TROPONINS. SHE IS A&O X 4, INDEPENDENT IN THE ROOM. PT STATED THAT SHE IS FEELING BETTER, BUT DID HAVE SOME "MILD NAUSEA" THIS AM. NO C/O PAIN OR SOB. VITAL SIGNS STABLE. TELE SHOWED SB @ 57. PT RECEIVING NS @ 125 ML/HR. NO ACUTE CHANGES IN PT CONDITION NOTED DURING THE NIGHT. WILL CONTINUE TO MONITOR AND TREAT PER EMAR UNTIL HAND OFF TO DAY SHIFT RN.
[2021-01-07 05:53] LABS: BASOPHILS ABSOLUTE AUTO 0.03 K/mm3 (0.00-0.23); BASOPHILS PERCENT AUTO 0 % (0-2); EOSINOPHILS ABSOLUTE AUTO 0.15 K/mm3 (0.00-0.68); EOSINOPHILS PERCENT AUTO 2 % (0-6); Hematocrit 33.6 % (33.0-51.0); Hemoglobin 11.7 g/dL (11.5-16.0); IMMATURE GRAN ABSOLUTE AUTO 0.03 K/mm3 (0.00-0.10); IMMATURE GRAN PERCENT AUTO 0 % (0-1); LYMPHOCYTES ABSOLUTE AUTO 1.71 K/mm3 (0.84-5.20); LYMPHOCYTES PERCENT AUTO 25 % (21-46); MONOCYTES ABSOLUTE AUTO 0.42 K/mm3 (0.16-1.47); MONOCYTES PERCENT AUTO 6 % (4-13); Mean Corpuscular HGB 32.7 pg (26.0-34.0); Mean Corpuscular HGB Conc 34.8 g/dL (31.5-36.5); Mean Corpuscular Volume 94 fL (80-100); Mean Platelet Volume 9.8 fL (9.1-12.4); NEUTROPHILS ABSOLUTE AUTO 4.63 K/mm3 (1.96-9.15); NEUTROPHILS PERCENT AUTO 67 % (41-73); Platelet Count 110 K/mm3 (150-400); RDW Coefficient Variation 14.9 % (11.7-14.2); RDW Standard Deviation 51.1 fL (35.1-46.3); Red Blood Cell Count 3.58 M/mm3 (3.80-5.20); White Blood Cell Count 6.97 K/mm3 (4.00-11.30)
[2021-01-07 06:21] LABS: Albumin, Blood 2.7 g/dL (3.4-5.0); Anion Gap 10 mmol/L (6-16); Blood Urea Nitrogen 6 mg/dL (8-24); Bun/Creatinine Ratio 5.2 (12.0-20.0); CO2, Blood 24 mmol/L (21-32); Calcium, Blood 8.1 mg/dL (8.5-10.1); Chloride, Blood 114 mmol/L (98-108); Creatinine, Blood 1.16 mg/dL (0.40-1.00); Glomerular Filtration Rate 49 (60-); Glucose, Blood 81 mg/dL (70-99); Magnesium, Blood 1.7 mg/dL (1.6-2.4); Phosphorus, Blood 2.7 mg/dL (2.5-4.9); Potassium, Blood 2.6 mmol/L (3.5-5.5); Sodium, Blood 148 mmol/L (136-145)
[2021-01-07] MEDS ORDERED: CARV3.125 PO (10:07)
[2021-01-07] MEDS ORDERED: DICY20 PO (10:08)
[2021-01-07] MEDS ORDERED: OMEP20ER PO (10:09)
[2021-01-07] MEDS ORDERED: POTCHL20ER PO (10:14)
--- NOTE | 2021-01-07 14:53 | NUR ---
SUMMARY/DISCHARGE PT DISCHARGED TO HOME, PT VERBALIZED UNDERSTANDING OF DISCHARGE INSTRUCTIONS REGARDING MEDS AND FOLLOW UP, PT TAKEN OUT SAFELY VIA WHEELCHAIR
[2021-02-26] MEDS ORDERED: POTA20PAC PO (14:10)
[2021-02-26] MEDS ORDERED: DICY20 PO (14:10)
[2021-02-27] MEDS ORDERED: Macrobid 100 M100 MG PO (20:27)
== END 2021-01-07 14:44 | disposition home or self-care (01) ==
LOC: ER 09:43 → MEDS 09:44
PROVIDERS: Emergency Medicine; Nurse Practitioner Acute Care; ADMIT Internal Medicine
DX: I21.A1 Myocardial infarction type 2 (principal); R10.13 Epigastric pain; R10.32 Left lower quadrant pain; R11.2 Nausea with vomiting, unspecified; I10 Essential (primary) hypertension; E11.9 Type 2 diabetes mellitus without complications; E66.9 Obesity, unspecified; E87.6 Hypokalemia; N17.9 Acute kidney failure, unspecified; K58.9 Irritable bowel syndrome, unspecified; K74.60 Unspecified cirrhosis of liver; E86.0 Dehydration; E46 Unspecified protein-calorie malnutrition; K76.6 Portal hypertension; K31.89 Other diseases of stomach and duodenum; K29.50 Unspecified chronic gastritis without bleeding; E80.6 Other disorders of bilirubin metabolism; K76.0 Fatty (change of) liver, not elsewhere classified; K57.30 Diverticulosis of large intestine without perforation or abscess without bleeding; Z86.19 Personal history of other infectious and parasitic diseases; Z90.49 Acquired absence of other specified parts of digestive tract; Z88.8 Allergy status to other drugs, medicaments and biological substances; Z79.4 Long term (current) use of insulin; Z79.82 Long term (current) use of aspirin; Z80.0 Family history of malignant neoplasm of digestive organs; Z68.31 Body mass index [BMI] 31.0-31.9, adult
CPT/HCPCS: 36415; 74177; 78452; 80048; 80053; 80069; 81001; 82947; 83690; 83735; 84100; 84132; 84443; 84484; 85025; 93005; 93010; 93017; 96365-59; 96366; 96375; 96376; 99285-25; A9270; A9500; C9113; G0378; J0360; J0706; J1170; J2405; J2765; J2785; J3480; J7030; Q9967

== ENCOUNTER 2021-01-09 13:28 | Emergency (ER) | payer OTHER ==
[~2021-01-09] VITALS: Ht 154.9 cm; Wt 71.7 kg
[~2021-01-09 13:28] MED LIST changes: +CARV3.125 PO; +DICY20 PO; +OMEP20ER PO
[2021-01-09 13:58] LABS: BASOPHILS ABSOLUTE AUTO 0.03 K/mm3 (0.00-0.23); BASOPHILS PERCENT AUTO 0 % (0-2); EOSINOPHILS ABSOLUTE AUTO 0.07 K/mm3 (0.00-0.68); EOSINOPHILS PERCENT AUTO 1 % (0-6); Hematocrit 44.1 % (33.0-51.0); Hemoglobin 15.7 g/dL (11.5-16.0); IMMATURE GRAN ABSOLUTE AUTO 0.02 K/mm3 (0.00-0.10); IMMATURE GRAN PERCENT AUTO 0 % (0-1); LYMPHOCYTES ABSOLUTE AUTO 1.25 K/mm3 (0.84-5.20); LYMPHOCYTES PERCENT AUTO 16 % (21-46); MONOCYTES ABSOLUTE AUTO 0.51 K/mm3 (0.16-1.47); MONOCYTES PERCENT AUTO 7 % (4-13); Mean Corpuscular HGB 32.6 pg (26.0-34.0); Mean Corpuscular HGB Conc 35.6 g/dL (31.5-36.5); Mean Corpuscular Volume 92 fL (80-100); NEUTROPHILS ABSOLUTE AUTO 5.95 K/mm3 (1.96-9.15); NEUTROPHILS PERCENT AUTO 76 % (41-73); Platelet Count 144 K/mm3 (150-400); RDW Coefficient Variation 14.4 % (11.7-14.2); RDW Standard Deviation 48.1 fL (35.1-46.3); Red Blood Cell Count 4.81 M/mm3 (3.80-5.20); White Blood Cell Count 7.83 K/mm3 (4.00-11.30)
[2021-01-09 14:19] LABS: Albumin, Blood 3.7 g/dL (3.4-5.0); Albumin/Globulin Ratio 0.9 (0.8-1.8); Bilirubin, Total 1.7 mg/dL (0.1-1.0); Bun/Creatinine Ratio 3.8 (12.0-20.0); Calcium, Blood 9.2 mg/dL (8.5-10.1); Creatinine, Blood 1.04 mg/dL (0.40-1.00); Potassium, Blood 2.6 mmol/L (3.5-5.5); Total Protein, Blood 7.7 g/dL (6.4-8.2)
[2021-01-09 15:33] LABS: Source, Urine Clean Catch
[2021-01-09 15:41] LABS: Appearance, Urine Clear (Clear); Bilirubin, Urine Neg (Neg); Blood, Urine 3+ (Neg); Color, Urine Yellow (P-Yellow); Glucose Qualitative, Urine 2+ (Neg); Ketones, Urine 2+ (Neg); Leukocyte Esterase, Urine Neg (Neg); Nitrite, Urine Neg (Neg); Protein, Urine 2+ (Neg); Urobilinogen, Urine NORM (Normal); pH, Urine 6.5 (5.0-8.0)
[2021-01-09 15:57] LABS: Bacteria Rare /hpf; Red Blood Cells, Urine 0-2 /hpf (0-2); Squamous Epithelial Cells Rare /hpf (Few)
[2021-01-09] MEDS ORDERED: PHENERGAN25 MG PR (21:48)
[2021-02-26] MEDS ORDERED: DICY20 PO (14:10)
[2021-02-26] MEDS ORDERED: POTA20PAC PO (14:10)
[2021-02-27] MEDS ORDERED: Macrobid 100 M100 MG PO (20:27)
== END 2021-01-09 22:25 | disposition home or self-care (01) ==
LOC: ER 13:28
PROVIDERS: Physician Assistant
DX: R11.2 Nausea with vomiting, unspecified (principal); R10.9 Unspecified abdominal pain; E87.6 Hypokalemia; E11.9 Type 2 diabetes mellitus without complications; I10 Essential (primary) hypertension; Z79.4 Long term (current) use of insulin; Z79.84 Long term (current) use of oral hypoglycemic drugs; Z79.899 Other long term (current) drug therapy; Z79.82 Long term (current) use of aspirin
CPT/HCPCS: 36415; 80053; 81001; 85025; 96365; 96375; 96376; 99284-25; A9270; J2270; J2405; J3475

== ENCOUNTER 2021-01-16 13:06 | Emergency (ER) | payer OTHER ==
[~2021-01-16] VITALS: Ht 154.9 cm; Wt 71.7 kg
[~2021-01-16 13:06] MED LIST changes: +PHENERGAN25 MG PR
[2021-01-16 14:12] LABS: BASOPHILS ABSOLUTE AUTO 0.02 K/mm3 (0.00-0.23); BASOPHILS PERCENT AUTO 0 % (0-2); EOSINOPHILS ABSOLUTE AUTO 0.05 K/mm3 (0.00-0.68); EOSINOPHILS PERCENT AUTO 1 % (0-6); Hematocrit 40.9 % (33.0-51.0); Hemoglobin 14.5 g/dL (11.5-16.0); IMMATURE GRAN ABSOLUTE AUTO 0.02 K/mm3 (0.00-0.10); IMMATURE GRAN PERCENT AUTO 0 % (0-1); LYMPHOCYTES ABSOLUTE AUTO 1.74 K/mm3 (0.84-5.20); LYMPHOCYTES PERCENT AUTO 20 % (21-46); MONOCYTES ABSOLUTE AUTO 0.56 K/mm3 (0.16-1.47); MONOCYTES PERCENT AUTO 6 % (4-13); Mean Corpuscular HGB 32.8 pg (26.0-34.0); Mean Corpuscular HGB Conc 35.5 g/dL (31.5-36.5); Mean Corpuscular Volume 93 fL (80-100); NEUTROPHILS ABSOLUTE AUTO 6.37 K/mm3 (1.96-9.15); NEUTROPHILS PERCENT AUTO 73 % (41-73); Platelet Count 180 K/mm3 (150-400); RDW Coefficient Variation 14.5 % (11.7-14.2); RDW Standard Deviation 48.5 fL (35.1-46.3); Red Blood Cell Count 4.42 M/mm3 (3.80-5.20); White Blood Cell Count 8.76 K/mm3 (4.00-11.30)
[2021-01-16 14:29] LABS: Alanine Aminotransfer (ALT/SGP 52 U/L (12-78); Albumin, Blood 3.9 g/dL (3.4-5.0); Albumin/Globulin Ratio 0.9 (0.8-1.8); Alk Phos 87 U/L (50-136); Anion Gap 5 mmol/L (6-16); Aspartate Aminotrans (AST/SGOT 61 U/L (12-37); Bilirubin, Total 1.2 mg/dL (0.1-1.0); Blood Urea Nitrogen 10 mg/dL (8-24); Bun/Creatinine Ratio 12.3 (12.0-20.0); CO2, Blood 29 mmol/L (21-32); Calcium, Blood 9.4 mg/dL (8.5-10.1); Chloride, Blood 102 mmol/L (98-108); Creatinine, Blood 0.82 mg/dL (0.40-1.00); Globulin, Blood 4.2 g/dL (2.2-4.0); Glomerular Filtration Rate >60 (60-); Glucose, Blood 225 mg/dL (70-99); Potassium, Blood 3.3 mmol/L (3.5-5.5); Sodium, Blood 136 mmol/L (136-145); Total Protein, Blood 8.1 g/dL (6.4-8.2)
[2021-01-16 14:43] LABS: Source, Urine Clean Catch
[2021-01-16 14:46] LABS: Bilirubin, Urine Neg (Neg); Blood, Urine 3+ (Neg); Glucose Qualitative, Urine 1+ (Neg); Ketones, Urine Neg (Neg); Leukocyte Esterase, Urine 2+ (Neg); Nitrite, Urine Neg (Neg); Protein, Urine 3+ (Neg); Urobilinogen, Urine NORM (Normal)
[2021-01-16 14:53] LABS: Appearance, Urine Hazy (Clear); Color, Urine Yellow (P-Yellow)
[2021-01-16 14:55] LABS: Bacteria Mod /hpf; Squamous Epithelial Cells Many /hpf (Few)
[2021-01-16 14:56] LABS: Transitional Epithelial Cells Few /hpf (0-Rare); Yeast/Fungi Urine Rare /hpf
[2021-01-16 15:04] LABS: Troponin I <0.015 ng/mL (0.000-0.040)
[2021-01-16] MEDS ORDERED: DICY20 PO (16:11)
[2021-02-26] MEDS ORDERED: DICY20 PO (14:10)
[2021-02-26] MEDS ORDERED: POTA20PAC PO (14:10)
[2021-02-27] MEDS ORDERED: Macrobid 100 M100 MG PO (20:27)
== END 2021-01-16 16:37 | disposition home or self-care (01) ==
LOC: ER 13:06
PROVIDERS: Emergency Medicine; Physician Assistant
DX: R10.84 Generalized abdominal pain (principal); R11.0 Nausea; I10 Essential (primary) hypertension; E11.43 Type 2 diabetes mellitus with diabetic autonomic (poly)neuropathy; K31.84 Gastroparesis; Z79.4 Long term (current) use of insulin; Z79.899 Other long term (current) drug therapy; Z88.8 Allergy status to other drugs, medicaments and biological substances
CPT/HCPCS: 36415; 80053; 81001; 83690; 84484; 85025; 87086; 93005; 93010; 96374; 96375; 99284-25; A9270; J1885; J2550; J7120

== ENCOUNTER 2021-01-19 16:21 | Emergency (ER) | payer OTHER ==
[~2021-01-19] VITALS: Ht 154.9 cm; Wt 71.7 kg
[2021-01-19 17:25] LABS: BASOPHILS ABSOLUTE AUTO 0.03 K/mm3 (0.00-0.23); BASOPHILS PERCENT AUTO 0 % (0-2); EOSINOPHILS ABSOLUTE AUTO 0.01 K/mm3 (0.00-0.68); EOSINOPHILS PERCENT AUTO 0 % (0-6); Hematocrit 43.3 % (33.0-51.0); Hemoglobin 15.2 g/dL (11.5-16.0); IMMATURE GRAN ABSOLUTE AUTO 0.02 K/mm3 (0.00-0.10); IMMATURE GRAN PERCENT AUTO 0 % (0-1); LYMPHOCYTES ABSOLUTE AUTO 0.82 K/mm3 (0.84-5.20); LYMPHOCYTES PERCENT AUTO 11 % (21-46); MONOCYTES ABSOLUTE AUTO 0.31 K/mm3 (0.16-1.47); MONOCYTES PERCENT AUTO 4 % (4-13); Mean Corpuscular HGB Conc 35.1 g/dL (31.5-36.5); Mean Corpuscular Volume 94 fL (80-100); Mean Platelet Volume 9.7 fL (9.1-12.4); NEUTROPHILS ABSOLUTE AUTO 6.52 K/mm3 (1.96-9.15); NEUTROPHILS PERCENT AUTO 85 % (41-73); Platelet Count 190 K/mm3 (150-400); RDW Coefficient Variation 14.6 % (11.7-14.2); RDW Standard Deviation 49.8 fL (35.1-46.3); Red Blood Cell Count 4.61 M/mm3 (3.80-5.20); White Blood Cell Count 7.71 K/mm3 (4.00-11.30)
[2021-01-19 17:44] LABS: Alanine Aminotransfer (ALT/SGP 63 U/L (12-78); Albumin, Blood 4.2 g/dL (3.4-5.0); Alk Phos 96 U/L (50-136); Anion Gap 7 mmol/L (6-16); Aspartate Aminotrans (AST/SGOT 64 U/L (12-37); Bilirubin, Total 1.5 mg/dL (0.1-1.0); Blood Urea Nitrogen 9 mg/dL (8-24); Bun/Creatinine Ratio 10.3 (12.0-20.0); CO2, Blood 27 mmol/L (21-32); Calcium, Blood 10.2 mg/dL (8.5-10.1); Chloride, Blood 101 mmol/L (98-108); Creatinine, Blood 0.87 mg/dL (0.40-1.00); Globulin, Blood 4.3 g/dL (2.2-4.0); Glomerular Filtration Rate >60 (60-); Glucose, Blood 264 mg/dL (70-99); Potassium, Blood 4.7 mmol/L (3.5-5.5); Sodium, Blood 135 mmol/L (136-145); Total Protein, Blood 8.5 g/dL (6.4-8.2)
[2021-01-19] MEDS ORDERED: GLIM2 PO (18:46)
[2021-01-19 18:48] LABS: Source, Urine Clean Catch
[2021-01-19 18:56] LABS: Appearance, Urine Clear (Clear); Bilirubin, Urine Neg (Neg); Blood, Urine 2+ (Neg); Color, Urine Yellow (P-Yellow); Glucose Qualitative, Urine 3+ (Neg); Ketones, Urine 2+ (Neg); Leukocyte Esterase, Urine 2+ (Neg); Nitrite, Urine Neg (Neg); Protein, Urine 2+ (Neg); Specific Gravity, Urine 1.015 (1.003-1.022); Urobilinogen, Urine NORM (Normal)
[2021-01-19 19:13] LABS: Bacteria Mod /hpf; Squamous Epithelial Cells Many /hpf (Few)
[2021-01-19 19:23] LABS: International Normalized Ratio 1.12; Prothrombin Time Results 11.9 Sec (9.7-11.5)
[2021-01-19] MEDS ORDERED: Keflex500 MG PO (20:57)
[2021-02-26] MEDS ORDERED: POTA20PAC PO (14:10)
[2021-02-26] MEDS ORDERED: DICY20 PO (14:10)
[2021-02-27] MEDS ORDERED: Macrobid 100 M100 MG PO (20:27)
== END 2021-01-19 21:23 | disposition home or self-care (01) ==
LOC: ER 16:21
PROVIDERS: Emergency Medicine; Physician Assistant
DX: N39.0 Urinary tract infection, site not specified (principal); I10 Essential (primary) hypertension; E11.43 Type 2 diabetes mellitus with diabetic autonomic (poly)neuropathy; K31.84 Gastroparesis; Z79.4 Long term (current) use of insulin; Z79.82 Long term (current) use of aspirin; Z79.899 Other long term (current) drug therapy; Z88.8 Allergy status to other drugs, medicaments and biological substances
CPT/HCPCS: 36415; 80053; 81001; 83605; 83690; 83735; 84145; 85025; 85610; 87077; 87086; 87147; 87186; 96374; 96375; 96376; 99283-25; A9270; J1885; J2405

== ENCOUNTER → 2021-02-07 | Outpatient (CLI) | payer OTHER | END | disposition home or self-care (01) | LOC: LAB 09:30 → LAB SHORT 09:30 | DX: N30.00 Acute cystitis without hematuria (principal) | CPT/HCPCS: 87493 ==

== ENCOUNTER 2021-04-06 06:55 | Day surgery (SDC) | payer OTHER ==
[~2021-04-06] VITALS: Ht 154.9 cm; Wt 59.2 kg
[~2021-04-06 06:55] MED LIST changes: +Keflex500 MG PO; +Macrobid 100 M100 MG PO
== END 2021-04-06 09:16 | disposition home or self-care (01) ==
LOC: ORSCSDS 06:55
PROVIDERS: Internal Medicine Gastroenterology
PROC: 0DBN8ZX Excision of Sigmoid Colon, Via Natural or Artificial Opening Endoscopic, Diagnostic (ICD-10-PCS; principal; 2021-04-06 08:00)
PROC: 0DBK8ZX Excision of Ascending Colon, Via Natural or Artificial Opening Endoscopic, Diagnostic (ICD-10-PCS; principal; 2021-04-06 08:00)
PROC: 0DBM8ZX Excision of Descending Colon, Via Natural or Artificial Opening Endoscopic, Diagnostic (ICD-10-PCS; principal; 2021-04-06 08:00)
PROC: 0DBL8ZX Excision of Transverse Colon, Via Natural or Artificial Opening Endoscopic, Diagnostic (ICD-10-PCS; principal; 2021-04-06 08:00)
PROC: 0DBE8ZX Excision of Large Intestine, Via Natural or Artificial Opening Endoscopic, Diagnostic (ICD-10-PCS; principal; 2021-04-06 08:00)
DX: R19.7 Diarrhea, unspecified (principal); R63.4 Abnormal weight loss; D12.3 Benign neoplasm of transverse colon; D12.2 Benign neoplasm of ascending colon; D12.4 Benign neoplasm of descending colon; D12.8 Benign neoplasm of rectum; K57.30 Diverticulosis of large intestine without perforation or abscess without bleeding; K64.8 Other hemorrhoids; K74.60 Unspecified cirrhosis of liver; K75.81 Nonalcoholic steatohepatitis (NASH); E11.9 Type 2 diabetes mellitus without complications; E78.00 Pure hypercholesterolemia, unspecified; E78.5 Hyperlipidemia, unspecified; I10 Essential (primary) hypertension; Z79.4 Long term (current) use of insulin; Z79.899 Other long term (current) drug therapy
CPT/HCPCS: 82947; 88305; J0461; J2405; J2704; J7120

== ENCOUNTER 2021-04-17 11:18 | Inpatient (IN) | payer OTHER ==
[~2021-04-17] VITALS: Ht 154.9 cm; Wt 58.1 kg
[2021-04-17 14:38] LABS: Alanine Aminotransfer (ALT/SGP 23 U/L (12-78); Albumin, Blood 3.5 g/dL (3.4-5.0); Albumin/Globulin Ratio 0.9 (0.8-1.8); Alk Phos 77 U/L (50-136); Anion Gap 16 mmol/L (6-16); Aspartate Aminotrans (AST/SGOT 25 U/L (12-37); Bilirubin, Total 2.2 mg/dL (0.1-1.0); Blood Urea Nitrogen 12 mg/dL (8-24); Bun/Creatinine Ratio 17.8 (12.0-20.0); CO2, Blood 28 mmol/L (21-32); Calcium, Blood 9.1 mg/dL (8.5-10.1); Chloride, Blood 89 mmol/L (98-108); Creatinine, Blood 0.68 mg/dL (0.40-1.00); Globulin, Blood 3.7 g/dL (2.2-4.0); Glomerular Filtration Rate >60 (60-); Glucose, Blood 123 mg/dL (70-99); Potassium, Blood 2.3 mmol/L (3.5-5.5); Sodium, Blood 133 mmol/L (136-145); Total Protein, Blood 7.2 g/dL (6.4-8.2)
[2021-04-17 15:08] LABS: BASOPHILS ABSOLUTE AUTO 0.03 K/mm3 (0.00-0.23); BASOPHILS PERCENT AUTO 0 % (0-2); EOSINOPHILS ABSOLUTE AUTO 0.01 K/mm3 (0.00-0.68); EOSINOPHILS PERCENT AUTO 0 % (0-6); Hematocrit 37.2 % (33.0-51.0); Hemoglobin 14.2 g/dL (11.5-16.0); IMMATURE GRAN ABSOLUTE AUTO 0.02 K/mm3 (0.00-0.10); IMMATURE GRAN PERCENT AUTO 0 % (0-1); LYMPHOCYTES PERCENT AUTO 30 % (21-46); MONOCYTES ABSOLUTE AUTO 0.59 K/mm3 (0.16-1.47); MONOCYTES PERCENT AUTO 8 % (4-13); Mean Corpuscular HGB 31.4 pg (26.0-34.0); Mean Corpuscular HGB Conc 34.9 g/dL (31.5-36.5); Mean Corpuscular Volume 90 fL (80-100); Mean Platelet Volume 9.4 fL (9.1-12.4); NEUTROPHILS ABSOLUTE AUTO 4.77 K/mm3 (1.96-9.15); NEUTROPHILS PERCENT AUTO 62 % (41-73); Platelet Count 171 K/mm3 (150-400); RDW Standard Deviation 45.4 fL (35.1-46.3); Red Blood Cell Count 4.14 M/mm3 (3.80-5.20); White Blood Cell Count 7.72 K/mm3 (4.00-11.30)
[2021-04-17 15:43] LABS: Magnesium, Blood 2.1 mg/dL (1.6-2.4); Thyroid Stimulating Hormone 1.22 uIU/mL (0.360-4.800)
[2021-04-17] MEDS ORDERED: ONDA8 PO (16:07)
[2021-04-17] MEDS ORDERED: BASAGLAR K100 UNIT/3 SC (16:38)
--- NOTE | 2021-04-17 20:22 | NUR ---
ADMIT NOTE HANDOFF RECEIVED FROM ER NURSE COOPER. PT ARRIVED TO FLOOR VIA GURNEY. PERSONNAL POSSESSIONS WITH PT. PT ORIENTED TO UNIT. CALL BUTTON WITHIN REACH. IV FLUIDS INFUSING ORDERED. TELEMETRY MONITORING IN PLACE
--- NOTE | 2021-04-17 22:42 | NUR ---
IV POTASSIUM PT NOT TOLERATING IV INFUSION AT 50 ML/HR, EVEN WHEN RUNNING CONCURENTLY W/NS. SHE STATES INTOLERABLE BURNING. I HAVE SLOWED INFUSION TO 20 ML'S PER HOUR W/NS CONCURRENTLY.
--- NOTE | 2021-04-18 04:16 | NUR ---
CALLED HOSPITALIST PT UNABLE TO TOLERATE IV POTASSIUM EVEN AT LOWEST ML/HR, EVEN WITH NS INFUSING CONCURRENTLY. RECEIVED ORDER FOR PO POTASSIUM. PT CAN SWALLOW PILLS WITH NO ISSUES
--- NOTE | 2021-04-18 04:42 | NUR ---
SHIFT SUMMARY ADMITTED THIS SHIFT FOR HYPOKALEMIA. FULL CODE. IV K+ WAS SCHEDULED, BUT PT COULD NOT TOLERATE INFUSION (SEE PREVIOUS NOTES). ORDER RECEIVED FOR PO k+ ONE TIME. PT WAS MILDLY NAUSEAOUS TWICE THIS SHIFT, BUT SHE DID NOT VOMIT. TELEMETRY: NSR @ 69 BPM. Q6 HR GLUCOSE CHECKS. CDIFF STOOL SAMPLE SENT ORDERED. FULL LIQUID DIET. IV FLUIDS INFUSING ORDERED
[2021-04-18 04:55] LABS: Adenovirus F 40/41 Not Detected (NOT DETECT); Astrovirus Not Detected (NOT DETECT); Campylobacter Sp Not Detected (NOT DETECT); Cryptosporidium Not Detected (NOT DETECT); Cyclospora Cayetanensis Not Detected (NOT DETECT); E. Coli O157 Not Detected (NOT DETECT); Entamoeba Histolytica Not Detected (NOT DETECT); Enteroaggregative E. coli-EAEC Not Detected (NOT DETECT); Enteropathogenic E. coli-EPEC Not Detected (NOT DETECT); Enterotoxigenic E. coli-ETEC Not Detected (NOT DETECT); Giardia Lamblia Not Detected (NOT DETECT); Norovirus GI/GII Not Detected (NOT DETECT); Plesiomonas Shigelloides Not Detected (NOT DETECT); Rotavirus A Not Detected (NOT DETECT); Salmonella Sp Not Detected (NOT DETECT); Sapovirus Not Detected (NOT DETECT); Shiga Toxin-prod E. coli-STEC Not Detected (NOT DETECT); Shigella/Enteroin E. coli-EIEC Not Detected (NOT DETECT); Vibrio Cholerae Not Detected (NOT DETECT); Vibrio Sp Not Detected (NOT DETECT); Yersinia Enterocolitica Not Detected (NOT DETECT)
[2021-04-18 05:32] LABS: BASOPHILS ABSOLUTE AUTO 0.02 K/mm3 (0.00-0.23); BASOPHILS PERCENT AUTO 0 % (0-2); EOSINOPHILS ABSOLUTE AUTO 0.01 K/mm3 (0.00-0.68); EOSINOPHILS PERCENT AUTO 0 % (0-6); Hematocrit 37.1 % (33.0-51.0); Hemoglobin 13.8 g/dL (11.5-16.0); IMMATURE GRAN ABSOLUTE AUTO 0.01 K/mm3 (0.00-0.10); IMMATURE GRAN PERCENT AUTO 0 % (0-1); LYMPHOCYTES ABSOLUTE AUTO 1.94 K/mm3 (0.84-5.20); LYMPHOCYTES PERCENT AUTO 32 % (21-46); MONOCYTES ABSOLUTE AUTO 0.49 K/mm3 (0.16-1.47); MONOCYTES PERCENT AUTO 8 % (4-13); Mean Corpuscular HGB 33.4 pg (26.0-34.0); Mean Corpuscular HGB Conc 37.2 g/dL (31.5-36.5); Mean Corpuscular Volume 90 fL (80-100); Mean Platelet Volume 9.7 fL (9.1-12.4); NEUTROPHILS ABSOLUTE AUTO 3.61 K/mm3 (1.96-9.15); NEUTROPHILS PERCENT AUTO 59 % (41-73); Platelet Count 94 K/mm3 (150-400); RDW Coefficient Variation 13.9 % (11.7-14.2); RDW Standard Deviation 45.9 fL (35.1-46.3); Red Blood Cell Count 4.13 M/mm3 (3.80-5.20); White Blood Cell Count 6.08 K/mm3 (4.00-11.30)
[2021-04-18 05:56] LABS: Anion Gap 15 mmol/L (6-16); Blood Urea Nitrogen 14 mg/dL (8-24); Bun/Creatinine Ratio 23.9 (12.0-20.0); CO2, Blood 23 mmol/L (21-32); Calcium, Blood 8.3 mg/dL (8.5-10.1); Chloride, Blood 96 mmol/L (98-108); Creatinine, Blood 0.59 mg/dL (0.40-1.00); Glomerular Filtration Rate >60 (60-); Glucose, Blood 108 mg/dL (70-99); Potassium, Blood 2.9 mmol/L (3.5-5.5); Sodium, Blood 134 mmol/L (136-145)
--- NOTE | 2021-04-18 10:28 | NUR ---
DISCUSSED LOW POTASSIUM WITH DR COTTER THIS MORNING, AWAITING REPLACEMENT ORDER PER DR COTTER
--- NOTE | 2021-04-18 12:44 | NUR ---
PT'S SPEECH SOMEWHAT SLURRED. STATES SHE FEELS SLIGHTLY NUMB/TINGLY ALL OVER. ALL OTHER NEURO CHECKS NORMAL. CALLED DR COTTER, SHE ORDERS ADDITIONAL POTASSIUM AND STOPS MARINOL. TM
--- NOTE | 2021-04-18 17:59 | NUR ---
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 Today, she appears quite weak and tells me she has not been able to eat 'for a month." She says she is tired of not having any clear answers or a solution that is helpful. Feli is appreciative of prayer and gentle spiritual direction. She is normally a very active, independant woman. But has not been able to do much "for a long time now." I will remain available.
--- NOTE | 2021-04-18 18:38 | NUR ---
SHIFT SUMMARY HUDSON WAS NAUSEOUS THIS SHIFT, DRY HEAVING. STARTED 24 HR URINE COLLECTION. TO HAVE POWERGLIDE PLACED TONIGHT. HAD SLURRED SPEECH AT BEGINNING OF SHIFT, SEE PRIOR NOTE. AFTER PO POTASSIUM AND DC'D MARINOL, SPEECH IS MUCH CLEARER. SBA TO BSC, CALLED APPROPRIATELY. TOOK MEDS PRESCRIBED, CALL LIGHT IN REACH, WCTM
[2021-04-19 05:28] LABS: BASOPHILS ABSOLUTE AUTO 0.02 K/mm3 (0.00-0.23); BASOPHILS PERCENT AUTO 1 % (0-2); EOSINOPHILS ABSOLUTE AUTO 0.02 K/mm3 (0.00-0.68); EOSINOPHILS PERCENT AUTO 1 % (0-6); Hematocrit 30.6 % (33.0-51.0); Hemoglobin 11.1 g/dL (11.5-16.0); IMMATURE GRAN PERCENT AUTO 0 % (0-1); LYMPHOCYTES ABSOLUTE AUTO 1.73 K/mm3 (0.84-5.20); LYMPHOCYTES PERCENT AUTO 39 % (21-46); MONOCYTES ABSOLUTE AUTO 0.34 K/mm3 (0.16-1.47); MONOCYTES PERCENT AUTO 8 % (4-13); Mean Corpuscular HGB 33.4 pg (26.0-34.0); Mean Corpuscular HGB Conc 36.3 g/dL (31.5-36.5); Mean Corpuscular Volume 92 fL (80-100); Mean Platelet Volume 9.4 fL (9.1-12.4); NEUTROPHILS ABSOLUTE AUTO 2.33 K/mm3 (1.96-9.15); NEUTROPHILS PERCENT AUTO 52 % (41-73); Platelet Count 98 K/mm3 (150-400); RDW Coefficient Variation 13.8 % (11.7-14.2); RDW Standard Deviation 46.4 fL (35.1-46.3); Red Blood Cell Count 3.32 M/mm3 (3.80-5.20); White Blood Cell Count 4.44 K/mm3 (4.00-11.30)
[2021-04-19 05:53] LABS: C-REACTIVE PROTEIN, EXT RANGE <0.290 mg/dL (0.000-0.300); Ferritin, Serum 427 ng/mL (8-252); Iron Serum 161 ug/dL (50-170); Percent Saturation 88.5 % (15.0-50.0); Total Iron Binding Capacity 182 ug/dL (250-450)
--- NOTE | 2021-04-19 06:21 | NUR ---
SUMMARY PT PAIN AND NAUSEA TX WELL OREDERED. PT DID STATE SHE DID NOT WANT TO HAVE PHENERGAN BECAUSE IT MADE HER FEEL STRANGE. PT RESPONDED WELL TO OTHER MEDS. PT CURRENTLY AWAKE IN NO DISTRESS. CALL LIGHT IN REACH.
--- NOTE | 2021-04-19 18:31 | NUR ---
SHIFT SUMMARY PT IS AOX4. PT MEDICATED FOR PAIN X1. PT MEDICATED FOR NAUSEA X3. PT DENIES SOB. PT WORKED WITH PT/OT AND IS A SBA TO [facility]. PT IS STILL WEAK. PT TELE REMAINS IN SINUS RHYTHM. PT HAS POOR APPETITE. PT DID NOT HAVE VISITORS THIS SHIFT. NO PROCEDURES PERFOMED. PLAN IS FOR STRENGTHENING WITH PT/OT. PT IS IN BED, CALL LIGHT IN REACH, BED IN LOW POSITION.
[2021-04-20 05:13] LABS: Hematocrit 32.5 % (33.0-51.0); Hemoglobin 12.1 g/dL (11.5-16.0); Mean Corpuscular HGB 34.3 pg (26.0-34.0); Mean Corpuscular HGB Conc 37.2 g/dL (31.5-36.5); Mean Corpuscular Volume 92 fL (80-100); Mean Platelet Volume 9.7 fL (9.1-12.4); Platelet Count 102 K/mm3 (150-400); RDW Coefficient Variation 13.5 % (11.7-14.2); RDW Standard Deviation 45.4 fL (35.1-46.3); Red Blood Cell Count 3.53 M/mm3 (3.80-5.20); White Blood Cell Count 6.75 K/mm3 (4.00-11.30)
[2021-04-20 05:53] LABS: Alanine Aminotransfer (ALT/SGP 18 U/L (12-78); Albumin, Blood 3.1 g/dL (3.4-5.0); Albumin/Globulin Ratio 1.2 (0.8-1.8); Alk Phos 66 U/L (50-136); Anion Gap 9 mmol/L (6-16); Aspartate Aminotrans (AST/SGOT 16 U/L (12-37); Bilirubin, Total 1.4 mg/dL (0.1-1.0); Blood Urea Nitrogen 4 mg/dL (8-24); Bun/Creatinine Ratio 7.5 (12.0-20.0); CO2, Blood 32 mmol/L (21-32); Calcium, Blood 8.1 mg/dL (8.5-10.1); Chloride, Blood 92 mmol/L (98-108); Creatinine, Blood 0.54 mg/dL (0.40-1.00); Globulin, Blood 2.6 g/dL (2.2-4.0); Glomerular Filtration Rate >60 (60-); Glucose, Blood 112 mg/dL (70-99); Potassium, Blood 3.1 mmol/L (3.5-5.5); Sodium, Blood 133 mmol/L (136-145); Total Protein, Blood 5.7 g/dL (6.4-8.2); Triiodothyronine, Free 2.84 pg/mL (2.18-3.98)
[2021-04-20 10:49] LABS: Carcinoembryonic Antigen 10.6 ng/mL (0.0-3.0)
--- NOTE | 2021-04-20 17:10 | NUR ---
Spiritual care note: Feli is very appreciaitve of prayer and emotional support. She reports frustration that her symptoms returned "after I ate some thing yeasterday." She is dissapointed with lack of clear answers and path ging forward. We prayer together and I facilitated reminising. Both appeared to cheer her. [employer] services will remain available.
--- NOTE | 2021-04-20 18:34 | NUR ---
SHIFT SUMMARY- PT IS A/O, PLESANT AND COOPERATIVE. SHE HAS BEEN NAUSEOUS THIS SHIFT. SHE IS RECIEVING PRN NAUSEA MEDICATION, AND PAIN MEDICATION. SHE SHE IS AMBULATING IN THE ROOM. SHE DID VOMIT THIS SHIFT. HER BED IS IN THE LOW POSITON AND CALL LIGHT IS WITIN BRANDI.
--- NOTE | 2021-04-21 04:41 | NUR ---
SUMMARY NO NEW ISSUES NOTED. PT C/O OF NAUSEA AND ABD PAIN. TX PER EMAR W/ RELIEF. PT HAS RESTED BUT NOT SLEEP WELL. PT DENIES CX PAIN OR SOB. CALL LIGHT IN REACH.
--- NOTE | 2021-04-21 17:26 | NUR ---
SHIFT SUMMARY PT IS AOX4 AND PLEASANT. PT MEDICATED FOR PAIN X1. PT MEDICATED FOR NAUSEA X3. PT DENIES SOB. PT TELE REMAINS NSR. PT APPETITE IS MODERATE TO POOR, BUT PT ENJOYED LUNCH. NO PROCEDURES DONE THIS SHIFT. PT DID NOT HAVE VISITORS TODAY. PLAN IS FOR [facility] SCAN ON SATURDAY AT 0830, THEN SCAN WILL CONTINUE ON SATURDAY AND SATURDAY. PT UP TO CHAIR T/O SHIFT. PT IS IN BED, CALL LIGHT IN REACH, BED IN LOW POSITION.
[2021-04-22 05:08] LABS: Hematocrit 28.2 % (33.0-51.0); Hemoglobin 10.2 g/dL (11.5-16.0); Mean Corpuscular HGB 33.3 pg (26.0-34.0); Mean Corpuscular HGB Conc 36.2 g/dL (31.5-36.5); Mean Corpuscular Volume 92 fL (80-100); Mean Platelet Volume 9.3 fL (9.1-12.4); Platelet Count 94 K/mm3 (150-400); RDW Coefficient Variation 13.6 % (11.7-14.2); RDW Standard Deviation 45.2 fL (35.1-46.3); Red Blood Cell Count 3.06 M/mm3 (3.80-5.20); White Blood Cell Count 4.45 K/mm3 (4.00-11.30)
[2021-04-22 05:45] LABS: Alanine Aminotransfer (ALT/SGP 18 U/L (12-78); Albumin, Blood 2.7 g/dL (3.4-5.0); Albumin/Globulin Ratio 1.1 (0.8-1.8); Alk Phos 59 U/L (50-136); Anion Gap 6 mmol/L (6-16); Aspartate Aminotrans (AST/SGOT 20 U/L (12-37); Bilirubin, Total 0.9 mg/dL (0.1-1.0); Blood Urea Nitrogen 4 mg/dL (8-24); Bun/Creatinine Ratio 6.9 (12.0-20.0); C-REACTIVE PROTEIN, EXT RANGE <0.290 mg/dL (0.000-0.300); CO2, Blood 32 mmol/L (21-32); Calcium, Blood 8.2 mg/dL (8.5-10.1); Chloride, Blood 101 mmol/L (98-108); Creatinine, Blood 0.58 mg/dL (0.40-1.00); Globulin, Blood 2.5 g/dL (2.2-4.0); Glomerular Filtration Rate >60 (60-); Glucose, Blood 99 mg/dL (70-99); Potassium, Blood 2.7 mmol/L (3.5-5.5); Sodium, Blood 139 mmol/L (136-145); Total Protein, Blood 5.2 g/dL (6.4-8.2)
--- NOTE | 2021-04-22 06:14 | NUR ---
SHIFT SUMMARY PATIENT ALERT AND ORIENTED. HAD NO COMPLAINTS OF PAIN OR SHORTNESS OF BREATH. HAD NO NEED FOR PRN NAUSEA MEDICATION. PATIENT SLEPT WELL OVERNIGHT. NO ACUTE ISSUES NOTED. POWERGLIDE PATENT AND INFUSING. BED IN LOWEST POSITION WITH WHEELS LOCKED AND ALARM ON. CALL LIGHT WTIHIN REACH. REPORT GIVEN TO ONCOMING RN.
--- NOTE | 2021-04-22 18:41 | NUR ---
SHIFT SUMAMRY: NO ACUTE CHANGES TO REPORT THIS SHIFT. PT A&O; CALM AND COOPERATIVE WITHC ARE. NO C/O PAIN THIS SHIFT. SCHEDULED ANTI-EMETICS GIVEN. TELE IN PLACE; SR @ [address] ABDOMEN SCHEDULED FOR 1929; CONTRAST GIVEN; PT TOLERATING WELL. WCTM.
[2021-04-23 05:22] LABS: BASOPHILS ABSOLUTE AUTO 0.02 K/mm3 (0.00-0.23); BASOPHILS PERCENT AUTO 0 % (0-2); EOSINOPHILS ABSOLUTE AUTO 0.03 K/mm3 (0.00-0.68); EOSINOPHILS PERCENT AUTO 1 % (0-6); Hematocrit 29.3 % (33.0-51.0); Hemoglobin 10.5 g/dL (11.5-16.0); IMMATURE GRAN ABSOLUTE AUTO 0.01 K/mm3 (0.00-0.10); IMMATURE GRAN PERCENT AUTO 0 % (0-1); LYMPHOCYTES ABSOLUTE AUTO 1.84 K/mm3 (0.84-5.20); LYMPHOCYTES PERCENT AUTO 40 % (21-46); MONOCYTES ABSOLUTE AUTO 0.49 K/mm3 (0.16-1.47); MONOCYTES PERCENT AUTO 11 % (4-13); Mean Corpuscular HGB Conc 35.8 g/dL (31.5-36.5); Mean Corpuscular Volume 95 fL (80-100); Mean Platelet Volume 9.2 fL (9.1-12.4); NEUTROPHILS ABSOLUTE AUTO 2.27 K/mm3 (1.96-9.15); NEUTROPHILS PERCENT AUTO 49 % (41-73); Platelet Count 126 K/mm3 (150-400); RDW Standard Deviation 48.5 fL (35.1-46.3); Red Blood Cell Count 3.09 M/mm3 (3.80-5.20); White Blood Cell Count 4.66 K/mm3 (4.00-11.30)
--- NOTE | 2021-04-23 05:35 | NUR ---
SHIFT SUMMARY PATIENT ALERT AND ORIENTED. HAD NO COMPLAINTS OF PAIN OR SHORTNESS OF BREATH. DID NOT REQUIRE ANY PRN NAUSEA MEDICATION. NO ACUTE ISSUES NOTED OVERNIGHT. POWERGLIDE PATENT AND INFUSING. BED IN LOWEST POSITION WITH WHEELS LOCKED. CALL LIGHT WITHIN REACH. REPORT GIVEN TO ONCOMING RN.
[2021-04-23 06:01] LABS: Alanine Aminotransfer (ALT/SGP 20 U/L (12-78); Albumin/Globulin Ratio 1.2 (0.8-1.8); Alk Phos 66 U/L (50-136); Anion Gap 9 mmol/L (6-16); Aspartate Aminotrans (AST/SGOT 25 U/L (12-37); Bilirubin, Total 0.9 mg/dL (0.1-1.0); Blood Urea Nitrogen 2 mg/dL (8-24); Bun/Creatinine Ratio 3.1 (12.0-20.0); CO2, Blood 28 mmol/L (21-32); Calcium, Blood 8.6 mg/dL (8.5-10.1); Chloride, Blood 103 mmol/L (98-108); Creatinine, Blood 0.64 mg/dL (0.40-1.00); Globulin, Blood 2.5 g/dL (2.2-4.0); Glomerular Filtration Rate >60 (60-); Glucose, Blood 118 mg/dL (70-99); Potassium, Blood 2.5 mmol/L (3.5-5.5); Sodium, Blood 140 mmol/L (136-145); Total Protein, Blood 5.5 g/dL (6.4-8.2)
--- NOTE | 2021-04-23 16:39 | NUR ---
Pt resting in bed and is A&OX4. Pt denies pain, dyspnea, anxiety, and nausea at this time. Pt reports no pain or nausea for last 2 days. Pt reports feeling significantly better and is tolerating food intake. Pt reports living at home alone and at baseline is independent of her ADLs. Pt reports adequate support from friends and family. Listened as Pt discusses events leading up to this hospital stay. Pt reports not being able to eat for the last several months and has lost significant amount of weight. She states she felt that her life was nearing the end and states "I thought I was going to have to sign up for hospice". Pt reports suffering and misery for the last 4 months. She reports multiple attempts for the hospital to admit her but was denied. Continued therapeutic listening. Engaged in therapeutic discussion regarding considering completing an advanced directive. Educated on each section to complete and the importance of appointing a healthcare field marketing representative. Educated on life sustaining measures. Answered questions and continued therapeutic listening. Pt expresses appreciation and will consider completing AD at home with family. Palliative Care will remain available.
--- NOTE | 2021-04-23 18:22 | NUR ---
SHIFT SUMMARY: NO ACUTE EVENTS TO REPORT THSI SHIFT. PT A&O; CALM AND COOPERATIVE WITH CARE. SCHEDULED ANTI-EMETICS; NO C/O N/V. DIET ADVANCED TO MES SOFT; PT TOLERATING WELL. FLUIDS & K+ INFUSING. WCTM.
--- NOTE | 2021-04-24 05:34 | NUR ---
SHIFT SUMMARY PATIENT ALERT AND ORIENTED. WAS MEDICATED PER EMAR FOR ABDOMINAL PAIN AND NAUSEA. NO COMPLAINTS OF CHEST PAIN OR SHORTNESS OF BREATH. POWERGLIDE PATENT AND INFUSING. BED IN LOWEST POSITION WITH WHEELS LOCKED. CALL LIGHT WITHIN REACH. REPORT GIVEN TO ONCOMING RN.
--- NOTE | 2021-04-24 11:06 | NUR ---
PT C/O NAUSEA THIS AM. REFUSED PHENERGAN, REF PO REGLAN. STATES DOES NOT HELP. SPOKE TO ORDERS TO CHANGE TO IV. AND Juliana FIGUEREDO. DONE
--- NOTE | 2021-04-24 18:51 | NUR ---
Spiritual care note: Long talk with Feli this morning. 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 She misses feeling useful. She expressed hope that the current interventions who lead physician to a clear answer and cure. We prayer together to good effect. I will remain available.
--- NOTE | 2021-04-24 19:37 | NUR ---
PT QUITE PLEASANT TODAY. DID HAVE HER FRIEND IN TO VISIT TODAY. NAUSEA MUCH BETTER CONTROLLED WITH THE REGLAN. MT STATES MKUCH BETTER. 1ST OF 3 DAY STUDY DONE TODAY. DID FINALLY EAT SOME FOR DINNER AND KEEP IT DOWN TONITE. NO OHTER CONCERNS . BED IN LOW POSITION, CALL LITE IN REACH, CALLS APPROP
--- NOTE | 2021-04-25 04:32 | NUR ---
SHIFT SUMMARY- PT. A&OX4, INDEPENDENT IN THE ROOM. HAD C/O ABD PAIN AND FEELING QUEASY. MEDICATED PER EMAR WITH GOOD EFFECT. PT. SLEPT ON/OFF T/O THE NIGHT, NO APPARENT DISTRESS NOTED. SNACK GIVEN DURING THE NIGHT PER PT. REQUEST, TOLERATED WELL. DENIES NEEDS AT THIS TIME, VSS. CALL LIGHT WITHIN REACH AND SIDE RAILS UPX2. WILL CONT TO MONITOR.
[2021-04-25 06:22] LABS: Hematocrit 25.7 % (33.0-51.0); Hemoglobin 8.8 g/dL (11.5-16.0); Mean Corpuscular HGB 33.2 pg (26.0-34.0); Mean Corpuscular HGB Conc 34.2 g/dL (31.5-36.5); Mean Corpuscular Volume 97 fL (80-100); Mean Platelet Volume 10.1 fL (9.1-12.4); Platelet Count 103 K/mm3 (150-400); RDW Coefficient Variation 14.6 % (11.7-14.2); RDW Standard Deviation 50.5 fL (35.1-46.3); Red Blood Cell Count 2.65 M/mm3 (3.80-5.20); White Blood Cell Count 3.87 K/mm3 (4.00-11.30)
[2021-04-25 06:51] LABS: Alanine Aminotransfer (ALT/SGP 33 U/L (12-78); Albumin, Blood 2.5 g/dL (3.4-5.0); Alk Phos 68 U/L (50-136); Anion Gap 4 mmol/L (6-16); Aspartate Aminotrans (AST/SGOT 46 U/L (12-37); Bilirubin, Total 0.6 mg/dL (0.1-1.0); Blood Urea Nitrogen 4 mg/dL (8-24); Bun/Creatinine Ratio 6.5 (12.0-20.0); CO2, Blood 26 mmol/L (21-32); Calcium, Blood 8.1 mg/dL (8.5-10.1); Chloride, Blood 111 mmol/L (98-108); Creatinine, Blood 0.62 mg/dL (0.40-1.00); Globulin, Blood 2.4 g/dL (2.2-4.0); Glomerular Filtration Rate >60 (60-); Glucose, Blood 109 mg/dL (70-99); Magnesium, Blood 1.4 mg/dL (1.6-2.4); Potassium, Blood 4.1 mmol/L (3.5-5.5); Sodium, Blood 141 mmol/L (136-145); Total Protein, Blood 4.9 g/dL (6.4-8.2)
[2021-04-25 09:09] LABS: COPROPORPHYRIN (CP) I 18 ug/L (Undefined); COPROPORPHYRIN (CP) III 60 ug/L (Undefined); HEPTACARBOXYL (7-CP) 1 ug/L (Undefined); HEXACARBOXYL (6-CP) <1 ug/L (Undefined); PENTACARBOXYL (5-CP) 1 ug/L (Undefined); UROPORPHYRINS (UP) 3 ug/L (Undefined)
--- NOTE | 2021-04-25 10:06 | NUR ---
PT LEGS EDEMETOUS, DISCUSSED WITH , IVF STOPPED. PT REFUSING PREVALITE. D/C ALSO. DR WILL SEE PT LATER.
--- NOTE | 2021-04-25 18:29 | NUR ---
PT QUITE PLEASNT TODAY. DID HAVE FRIEND IN TO VISIT TODAY. STATES SOME BETTER TODAY, BELIEVES REGLAN WITH MEALS HELPS. IV. HAS BEEN WALKING IN ROOM, SOME HALLWAY WITH PT TODAY. LESS NAUSEA TODAY. ALMOST NO EMESIS TODAY. BED IN LOW POSITION, CALL LITE IN REACH, CALLS APPROP
--- NOTE | 2021-04-26 02:58 | NUR ---
ASSOCIATE EMBALMER/FUNERAL DIRECTOR SUMMARY HAS BEEN AWAKE AT INTERVALS. AFFECT REMAINS CHEERFUL WHEN CONVERSING WITH STAFF. NAUSEA X 1 FOR WHICH SHE RECEIVED ZOFRAN. MED EFFECTIVE. UP AD EVELINE WITH OUT DIFFICULTIES. MIDNIGHT CBG 99, NO COVERAGE NEEDED. CALL LIGHT IN REACH
[2021-04-26 09:10] LABS: 5-HIAA, URINE 1.4 mg/L (Undefined)
[2021-04-26 09:35] LABS: Hematocrit 23.8 % (33.0-51.0); Hemoglobin 8.2 g/dL (11.5-16.0); Mean Corpuscular HGB 33.9 pg (26.0-34.0); Mean Corpuscular HGB Conc 34.5 g/dL (31.5-36.5); Mean Corpuscular Volume 98 fL (80-100); Mean Platelet Volume 9.6 fL (9.1-12.4); Platelet Count 106 K/mm3 (150-400); RDW Coefficient Variation 14.8 % (11.7-14.2); RDW Standard Deviation 51.8 fL (35.1-46.3); Red Blood Cell Count 2.42 M/mm3 (3.80-5.20); White Blood Cell Count 2.99 K/mm3 (4.00-11.30)
[2021-04-26 10:33] LABS: Alanine Aminotransfer (ALT/SGP 35 U/L (12-78); Albumin, Blood 2.9 g/dL (3.4-5.0); Albumin/Globulin Ratio 1.4 (0.8-1.8); Alk Phos 62 U/L (50-136); Anion Gap 4 mmol/L (6-16); Aspartate Aminotrans (AST/SGOT 43 U/L (12-37); Bilirubin, Total 0.7 mg/dL (0.1-1.0); Blood Urea Nitrogen 5 mg/dL (8-24); Bun/Creatinine Ratio 7.7 (12.0-20.0); CO2, Blood 28 mmol/L (21-32); Calcium, Blood 8.3 mg/dL (8.5-10.1); Chloride, Blood 109 mmol/L (98-108); Creatinine, Blood 0.65 mg/dL (0.40-1.00); Ferritin, Serum 343 ng/mL (8-252); Globulin, Blood 2.1 g/dL (2.2-4.0); Glomerular Filtration Rate >60 (60-); Glucose, Blood 102 mg/dL (70-99); Iron Serum 72 ug/dL (50-170); Percent Saturation 45.6 % (15.0-50.0); Potassium, Blood 3.9 mmol/L (3.5-5.5); Sodium, Blood 141 mmol/L (136-145); Total Iron Binding Capacity 158 ug/dL (250-450)
[2021-04-26 16:10] LABS: CREATININE, URINE 27.4 mg/dL (Not Estab.)
--- NOTE | 2021-04-26 16:21 | NUR ---
Spiritual care note: Feli appears brighter today. She reports hope for answers and healing. She is very complimentary of physician "for not giving up on me." Prayer and gentle mental health counselor were well receieved. I will remain available.
--- NOTE | 2021-04-26 19:09 | NUR ---
SHIFT SUMMARY PT IS A&O, PLEASANT AND CO-OP. REQUESTED DIET CHANGED TO SOFT; PT UNABLE TO TOLERATE MECH DIET. PT TOLERATED SOFT DIET WELL THRU OUT THE DAY. MEDICATED FOR NAUSEA X2; MOSTLY PRECAUTION. PT REPORTED IT EFFECTIVE. UP INDEPENDENTLY AMBULATING AROUND RM AND IN HALLS USING FWW. ABLE TO OBTAIN LABS FROM [facility] WITH SOME EFFORT. CBG'S WNL'S; SEE CHART. ALBUMIN AND LASIX GIVEN FOR BLE EDEMA. PT REPORTS THIS NEW THIS ADMIT. NO C/O PAIN. DENIES FURTHER NEEDS. CALL LT IN REACH.
[2021-04-26 23:29] LABS: Stool Occult Blood Guaiac 1 Neg (Neg)
[2021-04-27 05:51] LABS: Hematocrit 24.5 % (33.0-51.0); Hemoglobin 8.3 g/dL (11.5-16.0); Mean Corpuscular HGB 33.7 pg (26.0-34.0); Mean Corpuscular HGB Conc 33.9 g/dL (31.5-36.5); Mean Corpuscular Volume 100 fL (80-100); Mean Platelet Volume 9.6 fL (9.1-12.4); Platelet Count 100 K/mm3 (150-400); RDW Coefficient Variation 15.3 % (11.7-14.2); RDW Standard Deviation 51.5 fL (35.1-46.3); RETICULOCYTE COUNT PERCENT 4.92 % (0.50-2.50); Red Blood Cell Count 2.46 M/mm3 (3.80-5.20)
[2021-04-27 06:10] LABS: Anion Gap 5 mmol/L (6-16); Blood Urea Nitrogen 9 mg/dL (8-24); Bun/Creatinine Ratio 12.7 (12.0-20.0); CO2, Blood 29 mmol/L (21-32); Calcium, Blood 8.7 mg/dL (8.5-10.1); Chloride, Blood 107 mmol/L (98-108); Creatinine, Blood 0.71 mg/dL (0.40-1.00); Glomerular Filtration Rate >60 (60-); Glucose, Blood 124 mg/dL (70-99); LDL Direct Measurement 47 mg/dL (0-130); Potassium, Blood 3.7 mmol/L (3.5-5.5); Sodium, Blood 141 mmol/L (136-145)
--- NOTE | 2021-04-27 07:59 | NUR ---
SHIFT SUMMARY: PATIENT IS A&OX4, VSS, UP TO THE BATHROOM WITH FWW INDEPENDANTLY. BLOOD GLUCOSE AT HS WAS 111, NO COVERAGE GIVEN PER MAR. NO ACUTE CHANGES.
[2021-04-27] MEDS ORDERED: SPIR25 PO (13:50)
[2021-04-27] MEDS ORDERED: LACTASE FAS9000 UNI1 PO (13:51)
[2021-04-27] MEDS ORDERED: CREON DR 3,0001 EACH PO (13:55)
--- NOTE | 2021-04-27 18:38 | NUR ---
PATIENT DISCHARGED HOME WITH PERSONAL BELONGINGS. TEACHBACK METHOD UTILIZED. ALL QUESTIONS ANSWERED AND PATIENT VERBALIZED UNDERSTANDING OF THE DISCHARGE ORDERS.
== END 2021-04-27 18:29 | disposition home or self-care (01) | DRG 74 ==
LOC: ER 11:18 → MEDS 11:19
PROVIDERS: Emergency Medicine; Internal Medicine; Nurse Practitioner Acute Care; Physician Assistant; ADMIT Internal Medicine
DX: E11.43 Type 2 diabetes mellitus with diabetic autonomic (poly)neuropathy (principal); D61.818 Other pancytopenia; K90.9 Intestinal malabsorption, unspecified; E87.6 Hypokalemia; K31.84 Gastroparesis; I10 Essential (primary) hypertension; K58.9 Irritable bowel syndrome, unspecified; K74.60 Unspecified cirrhosis of liver; K75.81 Nonalcoholic steatohepatitis (NASH); K86.89 Other specified diseases of pancreas; R63.4 Abnormal weight loss; E83.42 Hypomagnesemia; Z90.49 Acquired absence of other specified parts of digestive tract; Z86.19 Personal history of other infectious and parasitic diseases; Z88.8 Allergy status to other drugs, medicaments and biological substances; Z90.89 Acquired absence of other organs; Z98.890 Other specified postprocedural states; Z79.4 Long term (current) use of insulin; Z79.899 Other long term (current) drug therapy; Z68.23 Body mass index [BMI] 23.0-23.9, adult
CPT/HCPCS: 0097U; 36415; 74177; 78802; 80048; 80053; 81050; 82105; 82270; 82378; 82533; 82570; 82607; 82728; 82746; 82941; 82947; 83010; 83497; 83540; 83550; 83690; 83721; 83735; 84120; 84443; 84481; 85025; 85027; 85045; 85379; 85651; 86140; 86301; 86304; 96372; 96374; 96375; 96376; 97110; 97116; 97162; 97165; 97530; 97535; 99284-25; A9270; A9572; C1751; G0378; J1170; J1200; J1650; J1940; J2405; J2765; J3010; J3475; J3480; J7030; J7050; J7120; P9046; Q0167; Q9967

== ENCOUNTER 2021-08-25 15:08 | Emergency (ER) | payer OTHER ==
[~2021-08-25] VITALS: Ht 154.9 cm; Wt 54.4 kg
[~2021-08-25 15:08] MED LIST changes: +BASAGLAR K100 UNIT/3 SC; +CREON DR 3,0001 EACH PO; +LACTASE FAS9000 UNI1 PO; +SPIR25 PO
[2021-08-25] MEDS ORDERED: DICL25ER PO (15:44)
[2021-08-25] MEDS ORDERED: Diclofenac Pota50 MG PO (15:45)
[2021-08-25 16:32] LABS: Source, Urine Clean Catch
[2021-08-25 16:33] LABS: BASOPHILS ABSOLUTE AUTO 0.01 K/mm3 (0.00-0.23); BASOPHILS PERCENT AUTO 0 % (0-2); EOSINOPHILS ABSOLUTE AUTO 0.02 K/mm3 (0.00-0.68); EOSINOPHILS PERCENT AUTO 1 % (0-6); Hematocrit 34.1 % (33.0-51.0); Hemoglobin 11.7 g/dL (11.5-16.0); IMMATURE GRAN ABSOLUTE AUTO 0.01 K/mm3 (0.00-0.10); IMMATURE GRAN PERCENT AUTO 0 % (0-1); LYMPHOCYTES ABSOLUTE AUTO 0.77 K/mm3 (0.84-5.20); LYMPHOCYTES PERCENT AUTO 23 % (21-46); MONOCYTES ABSOLUTE AUTO 0.22 K/mm3 (0.16-1.47); MONOCYTES PERCENT AUTO 7 % (4-13); Mean Corpuscular HGB 33.9 pg (26.0-34.0); Mean Corpuscular HGB Conc 34.3 g/dL (31.5-36.5); Mean Corpuscular Volume 99 fL (80-100); Mean Platelet Volume 10.1 fL (9.1-12.4); NEUTROPHILS ABSOLUTE AUTO 2.38 K/mm3 (1.96-9.15); NEUTROPHILS PERCENT AUTO 70 % (41-73); Platelet Count 92 K/mm3 (150-400); RDW Standard Deviation 47.8 fL (35.1-46.3); Red Blood Cell Count 3.45 M/mm3 (3.80-5.20); White Blood Cell Count 3.41 K/mm3 (4.00-11.30)
[2021-08-25 16:41] LABS: Appearance, Urine Hazy (Clear); Bilirubin, Urine Neg (Neg); Blood, Urine Neg (Neg); Color, Urine Yellow (P-Yellow); Glucose Qualitative, Urine Neg (Neg); Ketones, Urine 1+ (Neg); Leukocyte Esterase, Urine 1+ (Neg); Nitrite, Urine Neg (Neg); Protein, Urine 1+ (Neg); Specific Gravity, Urine 1.015 (1.003-1.022); Urobilinogen, Urine 1+ (Normal)
[2021-08-25 16:51] LABS: Bacteria Mod /hpf; Granular Casts Rare /lpf (0); Red Blood Cells, Urine 0-2 /hpf (0-2); Squamous Epithelial Cells Few /hpf (Few)
[2021-08-25 16:53] LABS: Alanine Aminotransfer (ALT/SGP 52 U/L (12-78); Albumin, Blood 3.1 g/dL (3.4-5.0); Albumin/Globulin Ratio 0.9 (0.8-1.8); Alk Phos 79 U/L (50-136); Anion Gap 3 mmol/L (6-16); Aspartate Aminotrans (AST/SGOT 42 U/L (12-37); Blood Urea Nitrogen 10 mg/dL (8-24); Bun/Creatinine Ratio 12.2 (12.0-20.0); CO2, Blood 28 mmol/L (21-32); Calcium, Blood 8.8 mg/dL (8.5-10.1); Chloride, Blood 105 mmol/L (98-108); Creatinine, Blood 0.82 mg/dL (0.40-1.00); Globulin, Blood 3.5 g/dL (2.2-4.0); Glomerular Filtration Rate >60 (60-); Glucose, Blood 140 mg/dL (70-99); Potassium, Blood 4.6 mmol/L (3.5-5.5); Sodium, Blood 136 mmol/L (136-145); Total Protein, Blood 6.6 g/dL (6.4-8.2)
[2021-08-25] MEDS ORDERED: OXYACE7.5T PO (17:39)
[2021-08-25] MEDS ORDERED: Neurontin 100100 MG PO (17:39)
== END 2021-08-25 17:56 | disposition home or self-care (01) ==
LOC: ER 15:08
PROVIDERS: Physician Assistant
DX: R10.30 Lower abdominal pain, unspecified (principal); R11.2 Nausea with vomiting, unspecified; E11.43 Type 2 diabetes mellitus with diabetic autonomic (poly)neuropathy; K31.84 Gastroparesis; I10 Essential (primary) hypertension; Z88.8 Allergy status to other drugs, medicaments and biological substances; Z79.4 Long term (current) use of insulin; Z79.899 Other long term (current) drug therapy
CPT/HCPCS: 36415; 80053; 81001; 83690; 83735; 85025; 87086; 96374; 96375; 99284-25; J2270; J2405

== ENCOUNTER 2021-12-20 10:13 | Emergency (ER) | payer OTHER ==
[~2021-12-20] VITALS: Ht 154.9 cm; Wt 54.4 kg
[~2021-12-20 10:13] MED LIST changes: +DICL25ER PO; +Diclofenac Pota50 MG PO; +Neurontin 100100 MG PO; +OXYACE7.5T PO
[2021-12-20 11:03] LABS: BASOPHILS ABSOLUTE AUTO 0.01 K/mm3 (0.00-0.23); BASOPHILS PERCENT AUTO 0 % (0-2); EOSINOPHILS PERCENT AUTO 0 % (0-6); Hematocrit 42.8 % (33.0-51.0); Hemoglobin 14.2 g/dL (11.5-16.0); IMMATURE GRAN ABSOLUTE AUTO 0.02 K/mm3 (0.00-0.10); IMMATURE GRAN PERCENT AUTO 0 % (0-1); LYMPHOCYTES ABSOLUTE AUTO 0.62 K/mm3 (0.84-5.20); LYMPHOCYTES PERCENT AUTO 11 % (21-46); MONOCYTES ABSOLUTE AUTO 0.28 K/mm3 (0.16-1.47); MONOCYTES PERCENT AUTO 5 % (4-13); Mean Corpuscular HGB 32.9 pg (26.0-34.0); Mean Corpuscular HGB Conc 33.2 g/dL (31.5-36.5); Mean Corpuscular Volume 99 fL (80-100); Mean Platelet Volume 9.6 fL (9.1-12.4); NEUTROPHILS ABSOLUTE AUTO 4.97 K/mm3 (1.96-9.15); NEUTROPHILS PERCENT AUTO 84 % (41-73); Platelet Count 166 K/mm3 (150-400); RDW Coefficient Variation 12.5 % (11.7-14.2); Red Blood Cell Count 4.32 M/mm3 (3.80-5.20)
[2021-12-20 11:17] LABS: Alanine Aminotransfer (ALT/SGP 34 U/L (12-78); Albumin, Blood 4.1 g/dL (3.4-5.0); Albumin/Globulin Ratio 0.9 (0.8-1.8); Alk Phos 107 U/L (50-136); Anion Gap 8 mmol/L (6-16); Aspartate Aminotrans (AST/SGOT 19 U/L (12-37); Bilirubin, Total 0.9 mg/dL (0.1-1.0); Blood Urea Nitrogen 23 mg/dL (8-24); Bun/Creatinine Ratio 29.3 (12.0-20.0); CO2, Blood 28 mmol/L (21-32); Calcium, Blood 9.6 mg/dL (8.5-10.1); Chloride, Blood 102 mmol/L (98-108); Creatinine, Blood 0.78 mg/dL (0.40-1.00); Globulin, Blood 4.4 g/dL (2.2-4.0); Glomerular Filtration Rate >60 (60-); Glucose, Blood 216 mg/dL (70-99); Potassium, Blood 3.9 mmol/L (3.5-5.5); Sodium, Blood 138 mmol/L (136-145); Total Protein, Blood 8.5 g/dL (6.4-8.2)
== END 2021-12-20 13:30 | disposition home or self-care (01) ==
LOC: ER 10:13
PROVIDERS: Emergency Medicine
DX: R11.2 Nausea with vomiting, unspecified (principal); E11.9 Type 2 diabetes mellitus without complications; Z79.4 Long term (current) use of insulin; Z88.8 Allergy status to other drugs, medicaments and biological substances
CPT/HCPCS: 36415; 80053; 83690; 85025; 96374; 96375; 99284-25; J1885; J2405; J7120

== ENCOUNTER 2023-02-07 17:29 | Observation (INO) | payer OTHER ==
[~2023-02-07] VITALS: Ht 154.9 cm; Wt 73.2 kg
[2023-02-07 18:24] LABS: BASOPHILS ABSOLUTE AUTO 0.02 K/mm3 (0.00-0.23); BASOPHILS PERCENT AUTO 0 % (0-2); EOSINOPHILS ABSOLUTE AUTO 0.01 K/mm3 (0.00-0.68); EOSINOPHILS PERCENT AUTO 0 % (0-6); Hematocrit 49.9 % (33.0-51.0); Hemoglobin 17.5 g/dL (11.5-16.0); IMMATURE GRAN ABSOLUTE AUTO 0.06 K/mm3 (0.00-0.10); IMMATURE GRAN PERCENT AUTO 1 % (0-1); LYMPHOCYTES PERCENT AUTO 6 % (21-46); MONOCYTES ABSOLUTE AUTO 0.58 K/mm3 (0.16-1.47); MONOCYTES PERCENT AUTO 5 % (4-13); Mean Corpuscular HGB 31.6 pg (26.0-34.0); Mean Corpuscular HGB Conc 35.1 g/dL (31.5-36.5); Mean Corpuscular Volume 90 fL (80-100); NEUTROPHILS ABSOLUTE AUTO 10.78 K/mm3 (1.96-9.15); NEUTROPHILS PERCENT AUTO 89 % (41-73); RDW Coefficient Variation 12.8 % (11.7-14.2); RDW Standard Deviation 41.9 fL (35.1-46.3); Red Blood Cell Count 5.53 M/mm3 (3.80-5.20); White Blood Cell Count 12.15 K/mm3 (4.00-11.30)
[2023-02-07 18:37] LABS: Albumin, Blood 4.5 g/dL (3.4-5.0); Albumin/Globulin Ratio 0.9 (0.8-1.8); Bilirubin, Total 1.6 mg/dL (0.1-1.0); Bun/Creatinine Ratio 28.7 (12.0-20.0); Calcium, Blood 9.7 mg/dL (8.5-10.1); Creatinine, Blood 0.87 mg/dL (0.40-1.00); Globulin, Blood 5.1 g/dL (2.2-4.0); Potassium, Blood 4.2 mmol/L (3.5-5.5); Total Protein, Blood 9.6 g/dL (6.4-8.2)
[2023-02-07 19:07] LABS: Mean Platelet Volume 9.8 fL (9.1-12.4); Platelet Count 205 K/mm3 (150-400)
[2023-02-08] VITALS (20 sets, daily range): BP systolic 74–165; BP diastolic 46–130
[2023-02-08 00:07] LABS: Glucose, Blood 572 mg/dL (70-99)
[2023-02-08 01:40] LABS: Bun/Creatinine Ratio 39.3 (12.0-20.0); Calcium, Blood 8.9 mg/dL (8.5-10.1); Creatinine, Blood 0.87 mg/dL (0.40-1.00); Potassium, Blood 4.1 mmol/L (3.5-5.5)
--- NOTE | 2023-02-08 02:49 | NUR ---
ASSESSMENT/ADMIT PT ADMITTED TO ICU VIA ER. ARRIVED VIA GURNEY. TRANSFERED SELF TO BED WITH STANDBY ASSIST. A&O. C/O PAIN 05/06 TO LEFT UPPER QUAD ABD. MED WITH FENTANYL 25 MCQ WITH GOOD RESULTS. LUNGS CLEAR ON ROOMAIR. RESP EVEN AND NONLABORED. HEART RATE REGULAR. NO EDEMA. MAEW. SKIN WARM, PINK AND DRY. NO SKIN BREAKDOWN NOTED. IV 20G TO LEFT HAND NS AT 75 ML/HR AND INSULIN GTT AT 2 UNITS/HR STARTED. SITE CLEAR. IV 20G TO LEFT UPPER ARM SALINE LOCKED. SITE CLEAR, FLUSHED WITHOUT DIFFICULTY. PT ABLE TO ANSWER QUESTIONS. ADMIT COMPLETE.
[2023-02-08] MEDS ORDERED: INSULANI SC (02:57)
[2023-02-08] MEDS ORDERED: Amaryl2 MG PO (02:58)
[2023-02-08] MEDS ORDERED: Aspir 8181 MG PO (02:58)
[2023-02-08] MEDS ORDERED: Cranberry425 MG PO (02:59)
[2023-02-08] MEDS ORDERED: [UNRECOGNIZED DRUG - CODE] PO (03:00)
[2023-02-08] MEDS ORDERED: LORA10ER PO (03:00)
[2023-02-08] MEDS ORDERED: COQ-10100 MG PO (03:01)
[2023-02-08] MEDS ORDERED: CULTURELLE ADV1 EACH PO (03:01)
[2023-02-08] MEDS ORDERED: ACET500 PO (03:02)
[2023-02-08] MEDS ORDERED: LOSA25 PO (03:03)
--- NOTE | 2023-02-08 05:51 | NUR ---
SHIFT SUMMARY PT ADMITTED TO ICU DURING THE NIGHT. PT AWAKE, RESTING QUIETLY. CURRENTLY ON INSULIN GTT AT 2 UNITS/HR AND NS AT 75 ML/HR. BLOOD GLUCOSE DOWN TO 286 FROM 622. VSS. PT UP TO BATHROOM WITH STANDBY ASSIST FOR LINES. GAIT STEADY. MED WITH FENTANYL 25 MCQ FOR ABD PAIN 05/06 WHEN PT ARRIVED TO ICU. PT REPORTS NO PAIN AT THIS TIME. STATES,"THAT FENTANYL WORKED REALLY WELL. I HAVE NOT HAD ANY PAIN SINCE YOU GAVE IT TO ME". WILL CONT NS IV FLUID AT 75 ML/HR UNTIL BLOOD GLUCOSE BELOW 200, THAN WILL NOTIFY MD. REPORT TO ON COMING NURSE.
--- NOTE | 2023-02-08 07:58 | NUR ---
ASSUMED CARE BEDSIDE REPORT FROM DENNIS HERNADEZ AT 0700. PT RESTING IN BED. A&OX 4. FOLLOWS COMMANDS. STATES SHE IS FEELING BACK TO BASELINE. DENIES SYMPTOMS, ABD PAIN, N/V. LUNGS CLEAR. SR, RATE 70'S, BP STABLE. ABD ROUND, SOFT, NON TENDER. BT X 4. INDEPENDENT IN ROOM. ABLE TO MAKE NEEDS KNOWN. INSULIN GTT INFUSING, GOAL CBG <220, THEN WILL GIVE GLARGINE. TOLERATING ICE CHIPS WELL. WILL CONTINUE TO MONITOR.
[2023-02-08 08:23] LABS: BASOPHILS ABSOLUTE AUTO 0.03 K/mm3 (0.00-0.23); BASOPHILS PERCENT AUTO 0 % (0-2); EOSINOPHILS ABSOLUTE AUTO 0.01 K/mm3 (0.00-0.68); EOSINOPHILS PERCENT AUTO 0 % (0-6); Hemoglobin 14.8 g/dL (11.5-16.0); IMMATURE GRAN ABSOLUTE AUTO 0.05 K/mm3 (0.00-0.10); IMMATURE GRAN PERCENT AUTO 0 % (0-1); LYMPHOCYTES ABSOLUTE AUTO 2.04 K/mm3 (0.84-5.20); LYMPHOCYTES PERCENT AUTO 14 % (21-46); MONOCYTES ABSOLUTE AUTO 1.18 K/mm3 (0.16-1.47); MONOCYTES PERCENT AUTO 8 % (4-13); Mean Corpuscular HGB 32.1 pg (26.0-34.0); Mean Corpuscular HGB Conc 34.4 g/dL (31.5-36.5); Mean Corpuscular Volume 93 fL (80-100); Mean Platelet Volume 9.4 fL (9.1-12.4); NEUTROPHILS ABSOLUTE AUTO 11.83 K/mm3 (1.96-9.15); NEUTROPHILS PERCENT AUTO 78 % (41-73); Platelet Count 173 K/mm3 (150-400); RDW Coefficient Variation 13.2 % (11.7-14.2); Red Blood Cell Count 4.61 M/mm3 (3.80-5.20); White Blood Cell Count 15.14 K/mm3 (4.00-11.30)
--- NOTE | 2023-02-08 08:25 | NUR ---
Pt. is awake in bed and welcomes my visit. Pt. is pleasant. Pt. is a woman of robi and rapport is quickly established. Facilitated a life review and were able to establish some common connections outside the buddhist. Pt. displays evidence of being aware of her diagnosis, and motivated to invest in life changes to manage her health. Prayed with Pt. Pt. verbalized gratitude for the spiritual care visit.
[2023-02-08 08:44] LABS: Albumin, Blood 3.7 g/dL (3.4-5.0); Albumin/Globulin Ratio 0.8 (0.8-1.8); Bilirubin, Total 0.8 mg/dL (0.1-1.0); Bun/Creatinine Ratio 41.6 (12.0-20.0); Calcium, Blood 8.6 mg/dL (8.5-10.1); Creatinine, Blood 0.99 mg/dL (0.40-1.00); Globulin, Blood 4.4 g/dL (2.2-4.0); Potassium, Blood 3.8 mmol/L (3.5-5.5); Total Protein, Blood 8.1 g/dL (6.4-8.2)
[2023-02-08] MEDS ORDERED: ONDA4ODT MM (15:02)
[2023-02-08] MEDS ORDERED: HUMALOG KW100 UNIT/1 SC (15:04)
--- NOTE | 2023-02-08 16:30 | NUR ---
DISCHARGE PT TOLERATED DIET WELL. DENIES N/V, ABD PAIN OR OTHER SYMPTOMS. LSS COVERAGE ORDERED AND ADMINISTERED. D/C INSTRUCTIONS REVIEWED c PT, VERBALIZED UNDERSTANDING. UNABLE TO MAKE F/U APPT c PCP D/T OFFICE BEING CLOSED. PT STATES SHE WILL MAKE APPT SATURDAY. IVS REMOVED, PRESSURE DRESSINGS APPLIED. OTD NAD.
== END 2023-02-08 16:25 | disposition home or self-care (01) ==
LOC: ER 17:29 → ICUW 17:30 → ICUE 02-08 01:28
PROVIDERS: Physician Assistant; Student in an Organized Health Care Education/Training Program; ADMIT Internal Medicine
DX: E11.65 Type 2 diabetes mellitus with hyperglycemia (principal); E86.0 Dehydration; I10 Essential (primary) hypertension; Z79.4 Long term (current) use of insulin; Z88.8 Allergy status to other drugs, medicaments and biological substances
CPT/HCPCS: 36415; 80048; 80053; 82947; 83036; 83605; 83690; 83880; 85025; 96361; 96372; 96374; 96375; 96376; 99285-25; A9270; G0378; J1650; J1815; J2405; J3010; J7030

== ENCOUNTER 2024-09-22 19:11 | Emergency (ER) | payer OTHER ==
[~2024-09-22] VITALS: Ht 154.9 cm; Wt 79.4 kg
[~2024-09-22 19:11] MED LIST changes: +ACET500 PO; +CULTURELLE ADV1 EACH PO; +Cranberry425 MG PO; +HUMALOG KW100 UNIT/1 SC; +LORA10ER PO; +LOSA25 PO; +[UNRECOGNIZED DRUG - CODE] PO
[2024-09-22 20:12] LABS: BASOPHILS ABSOLUTE AUTO 0.02 K/mm3 (0.00-0.23); BASOPHILS PERCENT AUTO 0 % (0-2); EOSINOPHILS ABSOLUTE AUTO 0.01 K/mm3 (0.00-0.68); EOSINOPHILS PERCENT AUTO 0 % (0-6); Hematocrit 41.7 % (33.0-51.0); Hemoglobin 15.2 g/dL (11.5-16.0); IMMATURE GRAN ABSOLUTE AUTO 0.02 K/mm3 (0.00-0.10); IMMATURE GRAN PERCENT AUTO 0 % (0-1); LYMPHOCYTES ABSOLUTE AUTO 0.73 K/mm3 (0.84-5.20); LYMPHOCYTES PERCENT AUTO 13 % (21-46); MONOCYTES ABSOLUTE AUTO 0.16 K/mm3 (0.16-1.47); MONOCYTES PERCENT AUTO 3 % (4-13); Mean Corpuscular HGB 33.7 pg (26.0-34.0); Mean Corpuscular HGB Conc 36.5 g/dL (31.5-36.5); Mean Corpuscular Volume 93 fL (80-100); NEUTROPHILS ABSOLUTE AUTO 4.84 K/mm3 (1.96-9.15); NEUTROPHILS PERCENT AUTO 84 % (41-73); Platelet Count 135 K/mm3 (150-400); RDW Coefficient Variation 12.3 % (11.7-14.2); RDW Standard Deviation 41.4 fL (35.1-46.3); Red Blood Cell Count 4.51 M/mm3 (3.80-5.20); White Blood Cell Count 5.78 K/mm3 (4.00-11.30)
[2024-09-22 20:42] LABS: Albumin, Blood 3.8 g/dL (3.4-5.0); Albumin/Globulin Ratio 0.8 (0.8-1.8); Beta-hydroxybutyrate 7.1 mg/dL (0.2-2.8); Bilirubin, Total 1.1 mg/dL (0.1-1.0); Bun/Creatinine Ratio 15.3 (12.0-20.0); Calcium, Blood 9.5 mg/dL (8.5-10.1); Creatinine, Blood 0.65 mg/dL (0.40-1.00); Globulin, Blood 4.5 g/dL (2.2-4.0); Total Protein, Blood 8.3 g/dL (6.4-8.2)
[2024-09-22 20:47] LABS: Source, Urine Clean Catch
[2024-09-22 20:47] LABS: Base Excess Venous 0.2 mmol/L; Bicarbonate Venous 25.5 mmol/L (24.0-30.0); PCO2 Venous 30.6 mmHg (38-42); pH Blood Venous 7.49 (7.34-7.37)
[2024-09-22 20:59] LABS: Bilirubin, Urine Neg (Neg); Blood, Urine 2+ (Neg); Glucose Qualitative, Urine 4+ (Neg); Ketones, Urine 4+ (Neg); Leukocyte Esterase, Urine Neg (Neg); Nitrite, Urine Neg (Neg); Protein, Urine 3+ (Neg); Specific Gravity, Urine 1.015 (1.003-1.022); Urobilinogen, Urine 1+ (Normal); pH, Urine 6.5 (5.0-8.0)
[2024-09-22 21:15] LABS: Appearance, Urine Clear (Clear); Color, Urine Yellow (P-Yellow)
[2024-09-22 21:16] LABS: Hyaline Casts 0-2 /lpf (0-2); Red Blood Cells, Urine 0-2 /hpf (0-2); White Blood Cells, Urine 0-2 /hpf (0-5)
[2024-09-22 21:17] LABS: Bacteria Rare /hpf; Squamous Epithelial Cells Few /hpf (Few)
[2024-09-22] MEDS ORDERED: Metoclopramide HCl 5MG / ML 2ML Vial IV ONE (23:35)
[2024-09-22] MEDS ORDERED: Mag Hydrox/AL Hydrox/Simeth 30 ML UDC PO ONE (23:35)
[2024-09-22] MEDS ORDERED: Famotidine 10 MG/ML 2ML Vial IV ONE (23:35)
[2024-09-22] MEDS ORDERED: NS 1,000 ML IV SCH (23:35)
[2024-09-22] MEDS ORDERED: ALMACONE SUSPE355 ML PO (23:36)
[2024-09-22] MEDS ORDERED: FAMO20 PO (23:36)
[2024-09-23 00:45] VITALS: BP 185/66
[2024-09-23] MEDS ORDERED: Ketorolac Tromethamine 30mg Vial IV ONE (01:20)
[2024-09-23] MEDS ORDERED: NS 1,000 ML IV SCH (01:25)
[2024-09-23] MEDS ORDERED: Prochlorperazine Edisylate 10 mg Vial IV ONE (01:25)
[2024-09-23] MEDS ORDERED: Insulin Regular 100 UNIT/ML 10ML Vial SC ONE (01:25)
[2024-09-23] MEDS ORDERED: DiphenhydrAMINE HCl 50 MG/ML 1ML Vial IV ONE (01:25)
== END 2024-09-23 02:55 | disposition home or self-care (01) ==
LOC: ER 19:11
PROVIDERS: Student in an Organized Health Care Education/Training Program
DX: K21.9 Gastro-esophageal reflux disease without esophagitis (principal); E11.65 Type 2 diabetes mellitus with hyperglycemia; I10 Essential (primary) hypertension; E11.43 Type 2 diabetes mellitus with diabetic autonomic (poly)neuropathy; K31.84 Gastroparesis; Z79.82 Long term (current) use of aspirin; Z79.4 Long term (current) use of insulin; Z88.8 Allergy status to other drugs, medicaments and biological substances; Z88.1 Allergy status to other antibiotic agents
CPT/HCPCS: 71046; 80053; 81001; 82010; 82803; 82947; 83690; 84484; 85025; 93005; 93010; 96361; 96374; 96375; 99284-25; A9270; J0780; J1200; J1815; J1885; J2765; J7030

== ENCOUNTER 2024-10-07 11:35 | Day surgery (SDC) | payer OTHER ==
[~2024-10-07] VITALS: Ht 154.9 cm; Wt 78.2 kg
[~2024-10-07 11:35] MED LIST changes: +ALMACONE SUSPE355 ML PO; +FAMO20 PO; +Lactated Ringer's 1,000 ML IV ONE; +propofoL 50 ML IV ONE
[2024-10-07] MEDS ORDERED: INSULANI (12:16)
[2024-10-07] MEDS ORDERED: FOLI1 (12:25)
[2024-10-07] MEDS ORDERED: CENTRUM SILVER1 EAC2 (12:25)
[2024-10-07] MEDS ORDERED: NOVOLIN N100 UNIT/2 (12:25)
[2024-10-07] MEDS ORDERED: VITAMIN D310 MC1 (12:26)
[2024-10-07] MEDS ORDERED: PSEU120ER (12:26)
[2024-10-07] MEDS ORDERED: Lactated Ringer's 1,000 ML IV ONE (13:13)
[2024-10-07 14:15] VITALS: BP 112/89
== END 2024-10-07 14:13 | disposition home or self-care (01) ==
LOC: ORSCSDS 11:35
PROVIDERS: Internal Medicine Gastroenterology
PROC: 0DJ08ZZ Inspection of Upper Intestinal Tract, Via Natural or Artificial Opening Endoscopic (ICD-10-PCS; principal; 2024-10-07 13:00)
PROC: 0DBN8ZX Excision of Sigmoid Colon, Via Natural or Artificial Opening Endoscopic, Diagnostic (ICD-10-PCS; principal; 2024-10-07 13:00)
DX: Z12.11 Encounter for screening for malignant neoplasm of colon (principal); Z86.0100 Personal history of colon polyps, unspecified; K75.81 Nonalcoholic steatohepatitis (NASH); K74.60 Unspecified cirrhosis of liver; Z87.19 Personal history of other diseases of the digestive system; K57.30 Diverticulosis of large intestine without perforation or abscess without bleeding; K63.5 Polyp of colon; E11.9 Type 2 diabetes mellitus without complications; Z79.4 Long term (current) use of insulin; Z79.899 Other long term (current) drug therapy
CPT/HCPCS: 82947; 88305; J2704; J7120

== ENCOUNTER 2025-02-14 21:46 | Emergency (ER) | payer OTHER ==
[~2025-02-14] VITALS: Ht 154.9 cm; Wt 74.8 kg
[~2025-02-14 21:46] MED LIST changes: +CENTRUM SILVER1 EAC2; +FOLI1; +INSULANI; -Lactated Ringer's 1,000 ML IV ONE; +NOVOLIN N100 UNIT/2; +PSEU120ER; +VITAMIN D310 MC1; -propofoL 50 ML IV ONE
[2025-02-14 23:13] LABS: BASOPHILS ABSOLUTE AUTO 0.03 K/mm3 (0.00-0.23); BASOPHILS PERCENT AUTO 0 % (0-2); EOSINOPHILS ABSOLUTE AUTO 0.09 K/mm3 (0.00-0.68); EOSINOPHILS PERCENT AUTO 1 % (0-6); Hematocrit 50.9 % (33.0-51.0); IMMATURE GRAN ABSOLUTE AUTO 0.08 K/mm3 (0.00-0.10); IMMATURE GRAN PERCENT AUTO 1 % (0-1); LYMPHOCYTES ABSOLUTE AUTO 1.02 K/mm3 (0.84-5.20); LYMPHOCYTES PERCENT AUTO 9 % (21-46); MONOCYTES ABSOLUTE AUTO 0.46 K/mm3 (0.16-1.47); MONOCYTES PERCENT AUTO 4 % (4-13); Mean Corpuscular HGB 32.1 pg (26.0-34.0); Mean Corpuscular HGB Conc 35.4 g/dL (31.5-36.5); Mean Corpuscular Volume 91 fL (80-100); NEUTROPHILS ABSOLUTE AUTO 9.62 K/mm3 (1.96-9.15); NEUTROPHILS PERCENT AUTO 85 % (41-73); RDW Coefficient Variation 12.2 % (11.7-14.2); RDW Standard Deviation 40.8 fL (35.1-46.3)
[2025-02-14 23:14] LABS: Mean Platelet Volume 9.9 fL (9.1-12.4); Platelet Count 114 K/mm3 (150-400)
[2025-02-14 23:25] LABS: Albumin/Globulin Ratio 0.9 (0.8-1.8); Bilirubin, Total 1.7 mg/dL (0.1-1.0); Bun/Creatinine Ratio 27.6 (12.0-20.0); Calcium, Blood 8.8 mg/dL (8.5-10.1); Creatinine, Blood 0.65 mg/dL (0.40-1.00); Globulin, Blood 4.6 g/dL (2.2-4.0); Potassium, Blood 4.2 mmol/L (3.5-5.5); Total Protein, Blood 8.6 g/dL (6.4-8.2)
[2025-02-14] MEDS ORDERED: HYDROmorphone HCl/Pf 1MG SYR IM ONE (23:35)
[2025-02-15] MEDS ORDERED: NS 1,000 ML IV SCH (00:40)
[2025-02-15] MEDS ORDERED: Metoclopramide HCl 5MG / ML 2ML Vial IV ONE (00:40)
[2025-02-15 02:54] VITALS: BP 142/55
== END 2025-02-15 02:56 | disposition home or self-care (01) ==
LOC: ER 21:46
PROVIDERS: Student in an Organized Health Care Education/Training Program
DX: E11.43 Type 2 diabetes mellitus with diabetic autonomic (poly)neuropathy (principal); K31.84 Gastroparesis; I10 Essential (primary) hypertension; Z79.899 Other long term (current) drug therapy; Z88.8 Allergy status to other drugs, medicaments and biological substances; Z79.4 Long term (current) use of insulin
CPT/HCPCS: 80053; 83690; 85025; 96361; 96372-59; 96374; 99284-25; J1171; J2765; J7030

== ENCOUNTER 2025-05-11 07:09 | Emergency (ER) | payer OTHER ==
[~2025-05-11] VITALS: Ht 154.9 cm; Wt 79.4 kg
[2025-05-11] MEDS ORDERED: Ondansetron HCl 2 MG / ML 2ML Vial IV ONE (08:25)
[2025-05-11] MEDS ORDERED: Morphine Sulfate 4 MG/1 ML Injection IV ONE (08:25)
[2025-05-11 08:32] LABS: BASOPHILS ABSOLUTE AUTO 0.01 K/mm3 (0.00-0.23); BASOPHILS PERCENT AUTO 0 % (0-2); EOSINOPHILS ABSOLUTE AUTO 0.00 K/mm3 (0.00-0.68); EOSINOPHILS PERCENT AUTO 0 % (0-6); Hematocrit 45.6 % (33.0-51.0); Hemoglobin 16.1 g/dL (11.5-16.0); IMMATURE GRAN ABSOLUTE AUTO 0.02 K/mm3 (0.00-0.10); IMMATURE GRAN PERCENT AUTO 0 % (0-1); LYMPHOCYTES ABSOLUTE AUTO 0.67 K/mm3 (0.84-5.20); LYMPHOCYTES PERCENT AUTO 9 % (21-46); MONOCYTES ABSOLUTE AUTO 0.19 K/mm3 (0.16-1.47); MONOCYTES PERCENT AUTO 3 % (4-13); Mean Corpuscular HGB Conc 35.3 g/dL (31.5-36.5); Mean Corpuscular Volume 93 fL (80-100); NEUTROPHILS ABSOLUTE AUTO 6.61 K/mm3 (1.96-9.15); NEUTROPHILS PERCENT AUTO 88 % (41-73); NRBC ABSOLUTE 0.00 K/mm3 (0.00-0.02); NRBC Auto 0.0 /100 WBC (0.0-0.2); Platelet Count 141 K/mm3 (150-400); RDW Coefficient Variation 12.3 % (11.7-14.2); RDW Standard Deviation 42.1 fL (35.1-46.3)
[2025-05-11 10:17] LABS: Alanine Aminotransfer (ALT/SGP 61.0 U/L (12-78); Albumin, Blood 4.2 g/dL (3.4-5.0); Albumin/Globulin Ratio 0.9 (0.8-1.8); Anion Gap 20.0 mmol/L (3-11); Aspartate Aminotrans (AST/SGOT 40.0 U/L (12-37); Bilirubin, Total 1.3 mg/dL (0.1-1.0); Blood Urea Nitrogen 18.0 mg/dL (8-24); CO2, Blood 25.0 mmol/L (21-32); Calcium, Blood 10.3 mg/dL (8.5-10.1); Chloride, Blood 100.0 mmol/L (98-108); Creatinine, Blood 1.1 mg/dL (0.40-1.00); Globulin, Blood 4.6 g/dL (2.2-4.0); Glucose, Blood 372.0 mg/dL (70-99); Magnesium, Blood 1.8 mg/dL (1.6-2.4); Potassium, Blood 4.1 mmol/L (3.5-5.5); Sodium, Blood 141.0 mmol/L (136-145); Total Protein, Blood 8.8 g/dL (6.4-8.2)
[2025-05-11 10:45] VITALS: BP 154/77
[2025-05-11 11:20] LABS: Source, Urine Clean Catch
[2025-05-11 11:26] LABS: Bilirubin, Urine Neg (Neg); Color, Urine Yellow (P-Yellow); Glucose Qualitative, Urine 4+ (Neg); Ketones, Urine 3+ (Neg); Leukocyte Esterase, Urine Neg (Neg); Protein, Urine 2+ (Neg); Specific Gravity, Urine 1.010 (1.003-1.022); Urobilinogen, Urine NORM (Normal)
[2025-05-11] MEDS ORDERED: Metoclopramide HCl 5MG / ML 2ML Vial IV ONE (11:35)
[2025-05-11] MEDS ORDERED: Ketorolac Tromethamine 15mg Vial IV ONE (11:35)
[2025-05-11 11:46] LABS: Red Blood Cells, Urine 0-2 /hpf (0-2); White Blood Cells, Urine 0-2 /hpf (0-5)
[2025-05-11] MEDS ORDERED: ONDA4ODT MM (12:20)
== END 2025-05-11 12:38 | disposition home or self-care (01) ==
LOC: ER 07:09
PROVIDERS: Student in an Organized Health Care Education/Training Program
DX: R10.9 Unspecified abdominal pain (principal); R11.2 Nausea with vomiting, unspecified; K74.60 Unspecified cirrhosis of liver; E11.9 Type 2 diabetes mellitus without complications; I10 Essential (primary) hypertension; Z87.19 Personal history of other diseases of the digestive system; Z88.8 Allergy status to other drugs, medicaments and biological substances; Z88.2 Allergy status to sulfonamides; Z79.4 Long term (current) use of insulin
CPT/HCPCS: 71045; 74177; 80053; 81001; 83690; 83735; 84484; 85025; 93005; 93010; 96361; 96374-59; 96375; 99284-25; J1885; J2270; J2405; J2765; J7120; Q9967